=== PATIENT | female | born 1950 | race American Indian/Alaskan Native ===

== ENCOUNTER 2017-08-14 05:20 | Inpatient (IN) | payer MEDICARE ==
--- NOTE | 2017-08-14 06:22 | XRay Report ---
FINAL REPORT EXAM: XR CHEST 1V AP HISTORY: Dyspnea TECHNIQUE: AP portable view(s) of the chest obtained. PRIORS: None. FINDINGS: No mediastinal shift. The patient is rotated. Cardiac silhouette is not enlarged. No pneumothorax, effusion, or focal pulmonary opacity identified. No acute skeletal findings. IMPRESSION: No acute pulmonary finding identified.
[2017-08-14 06:23] LABS: Basophils % (Auto) 0.6 % (0.0-1.8); Eosinophils % (Auto) 2.1 % (0.0-4.3); Hematocrit 33.7 % (30.3-42.9); Hemoglobin 11.1 gm/dl (10.1-14.3); Mean Corpuscular HGB Conc 33 % (30-34); Mean Corpuscular Hemoglobin 29 pg (28-32); Mean Corpuscular Volume 89 fl (79-97); Platelet Count 125 K/mm3 (140-440); Red Cell Distribution Width 14.8 % (13.2-15.2); White Blood Count 3.5 K/mm3 (4.5-11.0)
[2017-08-14 06:45] LABS: Albumin 3.8 g/dL (3.9-5); Albumin/Globulin Ratio 1.1 %; Bilirubin,Total 0.4 mg/dL (0.1-1.2); Calcium 9.6 mg/dL (8.4-10.2); Chloride 95.4 mmol/L (98-107); Potassium 4.3 mmol/L (3.6-5.0); Total Protein 7.2 g/dL (6.3-8.2)
--- NOTE | 2017-08-14 07:18 | Emergency Department Report ---
ED General Adult HPI - General Chief complaint: Dyspnea/Respdistress Stated complaint: IGNACIO Time Seen by Provider: 08/14/17 06:29 Source: patient Mode of arrival: Stretcher Limitations: No Limitations - History of Present Illness Initial comments: Patient is a 67-year-old female past medical history of end-stage renal disease CVA who presents with chest pain. Patient states that chest pain occurred earlier on this morning she says the pain was made on 10 located in the middle of her chest radiated to her back was an achy type of pain nothing made it better or worse. The pain occurred while she was in her bathroom. Patient states that she's had similar chest pain like this before and she is also short of breath short of breath is worse with exertion and better with rest. She says the pain is constant and she called the ambulance. Severity scale (0 -10): 0 - Related Data Home Medications Medication Instructions Recorded Confirmed Last Taken ALPRAZolam 0.25 mg PO DAILY PRN 08/14/17 08/14/17 Unknown Cholecalciferol (Vitamin D3) 1,000 units PO DAILY 08/14/17 08/14/17 Unknown Coumadin 2.5 mg PO DAILY 08/14/17 08/14/17 Unknown Ergocalciferol (Vitamin D2) 1.25 mg PO 1XW MDD one by mouth 08/14/17 08/14/17 Unknown weekly HYDROcodone/APAP 5-325 1.5 mg PO BID PRN 08/14/17 08/14/17 Unknown Pantoprazole 40 mg PO DAILY 08/14/17 08/14/17 Unknown PriLOSEC 20 mg PO TID 08/14/17 08/14/17 Unknown Renvela 800 mg PO TID 08/14/17 08/14/17 Unknown Sensipar 60 mg PO DAILY 08/14/17 08/14/17 Unknown Temazepam 30 mg PO HS 08/14/17 08/14/17 Unknown Warfarin [Coumadin] 2.5 mg PO QWEEK 08/14/17 08/14/17 Unknown Warfarin [Coumadin] 5 mg PO QDAY 08/14/17 08/14/17 Unknown Xanax TAB 0.5 mg PO DAILY PRN 08/14/17 08/14/17 Unknown traZODone 50 mg PO HS 08/14/17 08/14/17 Unknown Previous Rx's Medication Instructions Recorded Last Taken Type Diltiazem [Cardizem] 60 mg PO TID 30 Days tablet 08/16/17 Unknown Rx Metoprolol [Lopressor TAB] 50 mg PO BID 30 Days tablet 08/16/17 Unknown Rx Allergies Allergy/AdvReac Type Severity Reaction Status Date / Time morphine Allergy Unknown Verified 08/14/17 06:42 ED Review of Systems ROS: Stated complaint: IGNACIO Other details as noted in HPI Constitutional: denies: chills, fever Eyes: denies: eye pain, eye discharge, vision change ENT: denies: ear pain, throat pain Respiratory: shortness of breath. denies: cough, wheezing Cardiovascular: chest pain. denies: palpitations Endocrine: no symptoms reported Gastrointestinal: denies: abdominal pain, nausea, diarrhea Genitourinary: denies: urgency, dysuria, discharge Musculoskeletal: denies: back pain, joint swelling, arthralgia Skin: denies: rash, lesions Neurological: denies: headache, weakness, paresthesias Psychiatric: denies: anxiety, depression Hematological/Lymphatic: denies: easy bleeding, easy bruising ED Past Medical Hx - Past Medical History Previous Medical History?: Yes Hx Hypertension: Yes Hx Diabetes: Yes Hx Renal Disease: Yes Additional medical history: End-stage renal disease.Mon/ Mon/ Mon Dialysis. Af - Surgical History Past Surgical History?: Yes Additional Surgical History: LUE fistula, C/Sx2 - Social History Smoking Status: Former Smoker Substance Use Type: None - Medications Home Medications: Home Medications Medication Instructions Recorded Confirmed Last Taken Type ALPRAZolam 0.25 mg PO DAILY PRN 08/14/17 08/14/17 Unknown History Cholecalciferol (Vitamin D3) 1,000 units PO DAILY 08/14/17 08/14/17 Unknown History Coumadin 2.5 mg PO DAILY 08/14/17 08/14/17 Unknown History Ergocalciferol (Vitamin D2) 1.25 mg PO 1XW MDD one by mouth 08/14/17 08/14/17 Unknown History weekly HYDROcodone/APAP 5-325 1.5 mg PO BID PRN 08/14/17 08/14/17 Unknown History Pantoprazole 40 mg PO DAILY 08/14/17 08/14/17 Unknown History PriLOSEC 20 mg PO TID 08/14/17 08/14/17 Unknown History Renvela 800 mg PO TID 08/14/17 08/14/17 Unknown History Sensipar 60 mg PO DAILY 08/14/17 08/14/17 Unknown History Temazepam 30 mg PO HS 08/14/17 08/14/17 Unknown History Warfarin [Coumadin] 2.5 mg PO QWEEK 08/14/17 08/14/17 Unknown History Warfarin [Coumadin] 5 mg PO QDAY 08/14/17 08/14/17 Unknown History Xanax TAB 0.5 mg PO DAILY PRN 08/14/17 08/14/17 Unknown History traZODone 50 mg PO HS 08/14/17 08/14/17 Unknown History Diltiazem [Cardizem] 60 mg PO TID 30 Days tablet 08/16/17 Unknown Rx Metoprolol [Lopressor TAB] 50 mg PO BID 30 Days tablet 08/16/17 Unknown Rx ED Physical Exam - General Limitations: No Limitations General appearance: alert, in no apparent distress - Head Head exam: Present: atraumatic, normocephalic - Eye Eye exam: Present: normal appearance - ENT ENT exam: Present: mucous membranes moist - Neck Neck exam: Present: normal inspection - Respiratory Respiratory exam: Present: normal lung sounds bilaterally. Absent: respiratory distress - Cardiovascular Cardiovascular Exam: Present: regular rate, normal rhythm. Absent: systolic murmur, diastolic murmur, rubs, gallop - GI/Abdominal GI/Abdominal exam: Present: soft, normal bowel sounds - Extremities Exam Extremities exam: Present: normal inspection - Back Exam Back exam: Present: normal inspection - Neurological Exam Neurological exam: Present: alert, oriented X3 - Psychiatric Psychiatric exam: Present: normal affect, normal mood - Skin Skin exam: Present: warm, dry, intact, normal color. Absent: rash ED Course Vital Signs 08/14/17 08/14/17 08/14/17 05:29 05:30 05:41 Temperature 99 F Pulse Rate 61 Respiratory 18 Rate Blood Pressure 132/59 Blood Pressure 132/59 [Right] O2 Sat by Pulse 100 100 100 Oximetry 08/14/17 08/14/17 08/14/17 05:45 06:00 06:12 Temperature Pulse Rate 58 L 59 L Respiratory 10 L 11 L 18 Rate Blood Pressure 132/59 133/75 Blood Pressure [Right] O2 Sat by Pulse 97 99 100 Oximetry 08/14/17 08/14/17 08/14/17 06:15 06:31 06:45 Temperature Pulse Rate 58 L 64 57 L Respiratory 14 11 L 14 Rate Blood Pressure 133/75 133/75 133/75 Blood Pressure [Right] O2 Sat by Pulse 100 98 98 Oximetry 08/14/17 08/14/17 08/14/17 07:00 07:15 07:30 Temperature Pulse Rate 58 L 59 L 63 Respiratory 16 13 11 L Rate Blood Pressure 135/79 143/90 155/92 Blood Pressure [Right] O2 Sat by Pulse 98 100 100 Oximetry 08/14/17 08/14/17 08/14/17 07:33 07:45 08:00 Temperature Pulse Rate 62 56 L 56 L Respiratory 12 13 Rate Blood Pressure 155/92 127/58 Blood Pressure [Right] O2 Sat by Pulse 98 96 Oximetry 08/14/17 08/14/17 08/14/17 08:15 08:30 08:45 Temperature Pulse Rate 59 L 58 L 63 Respiratory 12 14 13 Rate Blood Pressure 127/58 125/69 125/69 Blood Pressure [Right] O2 Sat by Pulse 100 97 100 Oximetry 08/14/17 08/14/17 08/14/17 09:01 09:15 09:31 Temperature Pulse Rate 59 L 66 92 H Respiratory 11 L 19 12 Rate Blood Pressure 125/69 125/69 125/69 Blood Pressure [Right] O2 Sat by Pulse Oximetry 08/14/17 08/14/17 09:45 10:00 Temperature Pulse Rate 72 60 Respiratory 10 L 19 Rate Blood Pressure 125/69 124/66 Blood Pressure [Right] O2 Sat by Pulse 99 Oximetry ED Medical Decision Making - Lab Data Result diagrams: 08/15/17 07:26 08/14/17 06:10 - EKG Data -: EKG Interpreted by Nv - EKG Data 08/14/17 10:34 EKG shows normal sinus rhythm no ST segment elevation or T-wave inversion normal access. - Radiology Data Radiology results: report reviewed, image reviewed Chest x-ray: Shows no acute cardio pulmonary disease - Medical Decision Making Chief medical diagnosis: Non-STEMI Differential medical diagnosis: Pneumonia, hyperkalemia, arrhythmia, bloodshot abnormality I will get an EKG chest x-ray CBC CMP troponin and IV pain medication Due to patient's cardiac risk factors and medical comorbidities patient will be admitted to the hospitalist service discussed found patient patient agrees with plan. Patient agrees with admission. Critical care attestation.: If time is entered above; I have spent that time in minutes in the direct care of this critically ill patient, excluding procedure time. ED Disposition Clinical Impression: Sciatica Qualifiers: Laterality: unspecified laterality Qualified Code(s): M54.30 - Sciatica, unspecified side Fluid overload Qualifiers: Hypervolemia type: unspecified Qualified Code(s): E87.70 - Fluid overload, unspecified Diabetes Qualifiers: Diabetes mellitus type: type 2 Diabetes mellitus complication status: with kidney complications Diabetes mellitus complication detail: with chronic kidney disease Diabetes mellitus buttermaker insulin use: with halfway use Chronic kidney disease stage: on chronic dialysis Qualified Code(s): E11.22 - Type 2 diabetes mellitus with diabetic chronic kidney disease; N18.6 - End stage renal disease; N18.6 - End stage renal disease; N18.6 - End stage renal disease; N18.6 - End stage renal disease; Z79.4 - manager terminal (current) use of insulin; Z79.4 - manager terminal (current) use of insulin; Z79.4 - manager terminal (current) use of insulin; Z79.4 - [facility] (current) use of insulin; Z99.2 - Dependence on renal dialysis; Z99.2 - Dependence on renal dialysis; Z99.2 - Dependence on renal dialysis; Z99.2 - Dependence on renal dialysis Disposition: DC-01 TO HOME OR SELFCARE Is pt being admited?: Yes Does the pt Need Aspirin: No Condition: Stable
[2017-08-14] MEDS ORDERED: DULCOLAX PR PRN (09:05)
[2017-08-14] MEDS ORDERED: AMBIEN PO PRN (09:05)
[2017-08-14] MEDS ORDERED: TYLENOL PO PRN (09:05)
[2017-08-14] MEDS ORDERED: NON-FORMULARY (Temazepam [Temazepam] 30 MG) PO PRN (09:27)
[2017-08-14] MEDS ORDERED: FLEXERIL PO PRN (09:27)
[2017-08-14] MEDS ORDERED: NITROSTAT SL PRN (09:33)
[2017-08-14] MEDS ORDERED: BABY ASPIRIN PO ONE (09:33)
[2017-08-14 09:37] LABS: INR 2.12 (0.87-1.13)
[2017-08-14 09:38] LABS: Partial Thromboplastin Time 39.2 Sec. (24.2-36.6)
[2017-08-14] MEDS ORDERED: ZOFRAN IV PRN (09:51)
--- NOTE | 2017-08-14 09:54 | History and Physical Report ---
<NEYDA EPSTEIN - Last Filed: 08/14/17 10:43> History of Present Illness Date of examination: 08/14/17 Date of admission: 08/14/2017 Chief complaint: heart palpitation and discomfort History of present illness: Patient is a 66 year old female with a history of ESRD, CVA, HTN, DM who presented to the Emergency Department complaints of worsening heart palpitations chest discomfort. She states that the pain began this morning while going to the bathroom, shortly thereafter, she felt like her heart is pounding to fast and got worried so called 911 and brought her to the Emergency Department. Patient described heart palpitations as something squeezing in her chest; non-radiating. There is no aggravating or reliving factors. The painful episodes did not increase in intensity or severity during this time. Patient denies any chest pain or discomfort at present time. She denies nausea, vomiting during these episodes of pain. She experienced shortness of breath and diaphoresis during these episodes of discomfort. Patient has negative stress test [address] [facility]. Past History Past Medical History: diabetes, ESRD, hypertension, stroke Past Surgical History: Other (Dialysis access) Social history: denies: smoking, alcohol abuse Family history: diabetes, hypertension Medications and Allergies Allergies Allergy/AdvReac Type Severity Reaction Status Date / Time morphine Allergy Unknown Verified 08/14/17 06:42 Home Medications Medication Instructions Recorded Confirmed Last Taken Type Cyclobenzaprine [Flexeril 10 MG 5 mg PO TID PRN #14 tablet 05/19/13 10/17/13 Rx TAB] 5mg oxyCODONE /ACETAMINOPHEN [Percocet 1 tab PO Q6HR PRN #14 tablet 05/19/1309/16/13 17:03 Rx 5/325 mg] ALPRAZolam [Xanax TAB] 0.5 mg PO Q8HR PRN 10/17/13 10/17/13 10/16/13 History Atenolol [Tenormin] 100 mg PO DAILY 10/17/13 10/17/13 10/16/13 History B Complex 11/Folic/C/Biot/Zinc 1 mg PO AC 10/17/13 10/17/13 10/16/13 History [Dialyvite with Zinc Tablet] Benazepril HCl [Lotensin] 40 mg PO DAILY 10/17/13 10/17/13 10/16/13 History Cinacalcet HCl [Sensipar] 60 mg PO DAILY 10/17/13 10/17/13 10/16/13 History Gabapentin [Neurontin] 100 mg PO Q8H 10/17/13 10/17/13 10/16/13 History NIFEdipine XL [Procardia Xl] 30 mg PO QDAY 10/17/13 10/17/13 10/16/13 History Sevelamer Carbonate [Renvela] 800 mg PO TIDWM 10/17/13 10/17/13 10/16/13 History Temazepam 30 mg PO HS PRN 10/17/13 10/17/13 10/16/13 History cloNIDine [Catapres] 0.2 mg PO QHS 10/17/13 10/17/13 10/16/13 History Warfarin [Coumadin] 2.5 mg PO QWEEK 08/14/17 08/14/17 Unknown History Warfarin [Coumadin] 5 mg PO QDAY 08/14/17 08/14/17 Unknown History Active Meds: Active Medications Acetaminophen (Tylenol) 650 mg PO Q4H PRN PRN Reason: Pain MILD(1-3)/Fever >100.5/VANN Aspirin (Baby Aspirin) 81 mg PO ONCE ONE Stop: 08/14/17 09:34 Bisacodyl (Dulcolax) 10 mg ID QDAY PRN PRN Reason: Constipation unrelieved by MOM Clonidine HCl (Catapres) 0.2 mg PO QHS [facility] Cyclobenzaprine HCl (Flexeril) 5 mg PO TID PRN PRN Reason: Pain Gabapentin (Neurontin) 100 mg PO Q8H [facility] Heparin Sodium (Porcine) (Heparin) 5,000 unit SUB-Q Q12HR [facility] Hydromorphone HCl (Dilaudid) 0.5 mg IV Q3H PRN PRN Reason: Pain, Moderate (4-6) Miscellaneous Medication (Atenolol [Tenormin]) 100 mg PO DAILY [facility] Miscellaneous Medication (B Complex 11/Folic/C/Biot/Zinc [Dialyvite With Zinc Tablet]) 1 mg PO AC [facility] Miscellaneous Medication (Benazepril Hcl [Lotensin]) 40 mg PO DAILY [facility] Miscellaneous Medication (Cinacalcet Hcl [Sensipar]) 60 mg PO DAILY [facility] Miscellaneous Medication (Temazepam [Temazepam]) 30 mg PO HS PRN PRN Reason: Insomnia Nifedipine (Procardia Xl) 30 mg PO QDAY [facility] Nitroglycerin (Nitrostat) 0.4 mg SL .Q5MIN PRN PRN Reason: Chest Pain Sevelamer Carbonate (Renvela) 800 mg PO TIDWM [facility] Warfarin Sodium (Coumadin Pharmacy To Dose) 1 each PO PKCONSULT [facility] PRN Reason: Protocol Zolpidem Tartrate (Ambien) 5 mg PO QHS PRN PRN Reason: Insomnia Review of Systems Constitutional: no weight loss, no weight gain, no fever, no chills Ears, nose, mouth and throat: no ear discharge, no tinnitis, no decreased hearing Breasts: no change in shape, no swelling Cardiovascular: chest pain, palpitations, shortness of breath, dyspnea on exertion, paroxysmal nocturnal dyspnea Respiratory: no cough Gastrointestinal: no abdominal pain, no nausea, no vomiting, no diarrhea, no constipation Genitourinary Female: no flank pain, no menorrhagia, no dysuria, no urinary frequency Rectal: no incontinence, no bleeding Musculoskeletal: no neck pain, no shooting arm pain, no arm numbness/tingling Integumentary: no sores, no wounds, no boils Neurological: no seizures, no syncope, no tremors Psychiatric: no change in appetite, no change in libido, no suicidal ideation Endocrine: no polyuria, no nocturia, no excessive sweating Hematologic/Lymphatic: no easy bruising, no easy bleeding Allergic/Immunologic: no urticaria, no allergic rhinitis, no wheezing Exam - Constitutional Vitals: Temp Pulse Resp BP Pulse Ox 99 F 59 L 11 L 125/69 100 08/14/17 05:41 08/14/17 09:01 08/14/17 09:01 08/14/17 09:01 08/14/17 08:45 General appearance: Present: no acute distress - EENT Eyes: Present: PERRL ENT: hearing intact - Neck Neck: Present: supple - Respiratory Respiratory effort: normal Respiratory: bilateral: CTA - Cardiovascular Rhythm: regular Heart Sounds: Present: S1 & S2 - Abdominal General gastrointestinal: Present: soft, non-tender - Rectal Rectal Exam: deferred - Integumentary Integumentary: Present: clear, warm, dry - Musculoskeletal Musculoskeletal: strength equal bilaterally - Psychiatric Psychiatric: appropriate mood/affect - Neurologic Neurologic: CNII-XII intact - Allied Health Allied health notes reviewed: nursing Results - Labs CBC & Chem 7: 08/14/17 06:10 08/14/17 06:10 Labs: Laboratory Last Values WBC 3.5 K/mm3 (4.5-11.0) L 08/14/17 06:10 RBC 3.80 M/mm3 (3.65-5.03) 08/14/17 06:10 Hgb 11.1 gm/dl (10.1-14.3) 08/14/17 06:10 Hct 33.7 % (30.3-42.9) 08/14/17 06:10 MCV 89 fl (79-97) 08/14/17 06:10 MCH 29 pg (28-32) 08/14/17 06:10 MCHC 33 % (30-34) 08/14/17 06:10 RDW 14.8 % (13.2-15.2) 08/14/17 06:10 Plt Count 125 K/mm3 (140-440) L 08/14/17 06:10 Lymph % (Auto) 37.5 % (13.4-35.0) H 08/14/17 06:10 [place] % (Auto) 12.4 % (0.0-7.3) H 08/14/17 06:10 Eos % (Auto) 2.1 % (0.0-4.3) 08/14/17 06:10 Baso % (Auto) 0.6 % (0.0-1.8) 08/14/17 06:10 Lymph # 1.3 K/mm3 (1.2-5.4) 08/14/17 06:10 [place] # 0.4 K/mm3 (0.0-0.8) 08/14/17 06:10 Eos # 0.1 K/mm3 (0.0-0.4) 08/14/17 06:10 Baso # 0.0 K/mm3 (0.0-0.1) 08/14/17 06:10 Seg Neutrophils % 47.4 % (40.0-70.0) 08/14/17 06:10 Seg Neutrophils # 1.7 K/mm3 (1.8-7.7) L 08/14/17 06:10 PT 24.8 Sec. (12.2-14.9) H 08/14/17 08:45 INR 2.12 (0.87-1.13) H 08/14/17 08:45 APTT 39.2 Sec. (24.2-36.6) H 08/14/17 08:45 Sodium 138 mmol/L (137-145) 08/14/17 06:10 Potassium 4.3 mmol/L (3.6-5.0) 08/14/17 06:10 Chloride 95.4 mmol/L (98-107) L 08/14/17 06:10 Carbon Dioxide 25 mmol/L (22-30) 08/14/17 06:10 Anion Gap 22 mmol/L 08/14/17 06:10 BUN 34 mg/dL (7-17) H 08/14/17 06:10 Creatinine 12.2 mg/dL (0.7-1.2) H 08/14/17 06:10 Estimated GFR 4 ml/min 08/14/17 06:10 BUN/Creatinine Ratio 3 % 08/14/17 06:10 Glucose 140 mg/dL (65-100) H 08/14/17 06:10 Calcium 9.6 mg/dL (8.4-10.2) 08/14/17 06:10 Total Bilirubin 0.40 mg/dL (0.1-1.2) 08/14/17 06:10 AST 17 units/L (5-40) 08/14/17 06:10 ALT 11 units/L (7-56) 08/14/17 06:10 Alkaline Phosphatase 153 units/L (35-129) H 08/14/17 06:10 Total Creatine Kinase 49 units/L (30-135) 08/14/17 06:10 CK-MB (CK-2) 1.0 ng/mL (0.0-4.0) 08/14/17 06:10 CK-MB (CK-2) Rel Index 2.0 (0-4) 08/14/17 06:10 Troponin T 0.048 ng/mL (0.00-0.029) H 08/14/17 07:13 Total Protein 7.2 g/dL (6.3-8.2) 08/14/17 06:10 Albumin 3.8 g/dL (3.9-5) L 08/14/17 06:10 Albumin/Globulin Ratio 1.1 % 08/14/17 06:10 Triglycerides 121 mg/dL (2-149) 08/14/17 07:13 Cholesterol 139 mg/dL (50-199) 08/14/17 07:13 LDL Cholesterol Direct 56 mg/dL (50-130) 08/14/17 07:13 HDL Cholesterol 59 mg/dL (40-59) 08/14/17 07:13 Cholesterol/HDL Ratio 2.35 % 08/14/17 07:13 - Imaging and Cardiology Chest x-ray: image reviewed (unremarkable ) Assessment and Plan Assessment and plan: Patient is a 66 year old female with a history of ESRD, CVA, HTN, DM who presented to the Emergency Department complaints of worsening heart palpitations chest discomfort. She states that the pain began this morning while going to the bathroom, shortly thereafter, she felt like her heart is pounding to fast. Chest Pain/discomfort We will admit to telemetry floor. EKG normal sinus rate [address] elevation or T-wave inversion. elevated cardiac enzyme due to ESRD. patient has elevated troponin on pervious labs. Start on aspirin Nitroglycerin when necessary Morphine ordered for pain Stress test ordered. Hypertension Resume home antihypertensive medication IV hydralazine for SBP>160 Closely monitor blood pressure End-stage renal disease on dialysis Patient will have urgent dialysis today Nephrology consulted Diabetes mellitus Accu-Chek before meals and at bedtime Sliding scale insulin/NovoLog ADA carbohydrate consistent diet Hypertensive urgency Continue home antihypertensive medications IV hydralazine for SBP>160 Closely monitor blood pressure Chronic anemia H&H stable for patient at this point; no blood transfusions needed Closely monitor H&H Hx of Atrial fibrillation Resume Coumadin DVT prophylaxis Heparin Advance Directives: Yes VTE prophylaxis?: Chemical Contraindication Mechanical VTE Prophylaxis: Treatment Not Indicated Plan of care discussed with patient/family: Yes <RUDY REBOLLEDO - Last Filed: 08/14/17 17:04> History of Present Illness Date of admission: 08/14/17 09:05 Medications and Allergies Active Meds: Active Medications Acetaminophen (Tylenol) 650 mg PO Q4H PRN PRN Reason: Pain MILD(1-3)/Fever >100.5/VANN Alprazolam (Xanax) 0.5 mg PO Q8H PRN PRN Reason: Anxiety Last Admin: 08/14/17 14:28 Dose: 0.5 mg Atenolol (Tenormin) 100 mg PO QDAY [facility] Bisacodyl (Dulcolax) 10 mg ID QDAY PRN PRN Reason: Constipation unrelieved by MOM Cinacalcet (Sensipar) 60 mg PO QDAY [facility] Clonidine HCl (Catapres) 0.2 mg PO QHS [facility] Cyclobenzaprine HCl (Flexeril) 5 mg PO TID PRN PRN Reason: MUSCLE RELAXING Dextrose (D50w (25gm) Syringe) 50 ml IV PRN PRN PRN Reason: Hypoglycemia Gabapentin (Neurontin) 100 mg PO Q8HR [facility] Hydromorphone HCl (Dilaudid) 0.5 mg IV Q3H PRN PRN Reason: Pain, Moderate (4-6) Last Admin: 08/14/17 13:30 Dose: 0.5 mg Insulin Aspart (Novolog) 0 units SUB-Q AC [facility] PRN Reason: Protocol Insulin Aspart (Novolog) 0 units SUB-Q QHS [facility] PRN Reason: Protocol Lisinopril (Zestril) 40 mg PO QDAY [facility] Multivit/Ca Carb/B Cmplx/FA/Prenat (Renal Caps) 1 cap PO QDAY [facility] Last Admin: 08/14/17 13:31 Dose: 1 cap Nifedipine (Procardia Xl) 30 mg PO QDAY [facility] Nitroglycerin (Nitrostat) 0.4 mg SL .Q5MIN PRN PRN Reason: Chest Pain Ondansetron HCl (Zofran) 4 mg IV Q4H PRN PRN Reason: Nausea And Vomiting Sevelamer Carbonate (Renvela) 800 mg PO TIDWM [facility] Last Admin: 08/14/17 13:31 Dose: 800 mg Temazepam (Restoril) 30 mg PO QHS PRN PRN Reason: Sleep Warfarin Sodium (Coumadin Pharmacy To Dose) 1 each PO PKCONSULT [facility] PRN Reason: Protocol Warfarin Sodium (Coumadin) 5 mg PO DAILY@1700 [facility] Exam - Constitutional Vitals: Temp Pulse Resp BP Pulse Ox 98.7 F 61 18 155/88 98 08/14/17 11:44 08/14/17 11:44 11/27/17 11:44 08/14/17 11:44 08/14/17 11:44 Results - Labs CBC & Chem 7: 08/14/17 06:10 08/14/17 06:10 Labs: Laboratory Last Values WBC 3.5 K/mm3 (4.5-11.0) L 08/14/17 06:10 RBC 3.80 M/mm3 (3.65-5.03) 08/14/17 06:10 Hgb 11.1 gm/dl (10.1-14.3) 08/14/17 06:10 Hct 33.7 % (30.3-42.9) 08/14/17 06:10 MCV 89 fl (79-97) 08/14/17 06:10 MCH 29 pg (28-32) 08/14/17 06:10 MCHC 33 % (30-34) 08/14/17 06:10 RDW 14.8 % (13.2-15.2) 08/14/17 06:10 Plt Count 125 K/mm3 (140-440) L 08/14/17 06:10 Lymph % (Auto) 37.5 % (13.4-35.0) H 08/14/17 06:10 [place] % (Auto) 12.4 % (0.0-7.3) H 08/14/17 06:10 Eos % (Auto) 2.1 % (0.0-4.3) 08/14/17 06:10 Baso % (Auto) 0.6 % (0.0-1.8) 08/14/17 06:10 Lymph # 1.3 K/mm3 (1.2-5.4) 08/14/17 06:10 [place] # 0.4 K/mm3 (0.0-0.8) 08/14/17 06:10 Eos # 0.1 K/mm3 (0.0-0.4) 08/14/17 06:10 Baso # 0.0 K/mm3 (0.0-0.1) 08/14/17 06:10 Seg Neutrophils % 47.4 % (40.0-70.0) 08/14/17 06:10 Seg Neutrophils # 1.7 K/mm3 (1.8-7.7) L 08/14/17 06:10 PT 24.8 Sec. (12.2-14.9) H 08/14/17 08:45 INR 2.12 (0.87-1.13) H 08/14/17 08:45 APTT 39.2 Sec. (24.2-36.6) H 08/14/17 08:45 Sodium 138 mmol/L (137-145) 08/14/17 06:10 Potassium 4.3 mmol/L (3.6-5.0) 08/14/17 06:10 Chloride 95.4 mmol/L (98-107) L 08/14/17 06:10 Carbon Dioxide 25 mmol/L (22-30) 08/14/17 06:10 Anion Gap 22 mmol/L 08/14/17 06:10 BUN 34 mg/dL (7-17) H 08/14/17 06:10 Creatinine 12.2 mg/dL (0.7-1.2) H 08/14/17 06:10 Estimated GFR 4 ml/min 08/14/17 06:10 BUN/Creatinine Ratio 3 % 08/14/17 06:10 Glucose 140 mg/dL (65-100) H 08/14/17 06:10 POC Glucose 161 (70-105) H 08/14/17 11:53 Calcium 9.6 mg/dL (8.4-10.2) 08/14/17 06:10 Total Bilirubin 0.40 mg/dL (0.1-1.2) 08/14/17 06:10 AST 17 units/L (5-40) 08/14/17 06:10 ALT 11 units/L (7-56) 08/14/17 06:10 Alkaline Phosphatase 153 units/L (35-129) H 08/14/17 06:10 Total Creatine Kinase 49 units/L (30-135) 08/14/17 06:10 CK-MB (CK-2) 1.0 ng/mL (0.0-4.0) 08/14/17 06:10 CK-MB (CK-2) Rel Index 2.0 (0-4) 08/14/17 06:10 Troponin T 0.054 ng/mL (0.00-0.029) H 08/14/17 09:48 Total Protein 7.2 g/dL (6.3-8.2) 08/14/17 06:10 Albumin 3.8 g/dL (3.9-5) L 08/14/17 06:10 Albumin/Globulin Ratio 1.1 % 08/14/17 06:10 Triglycerides 121 mg/dL (2-149) 08/14/17 07:13 Cholesterol 139 mg/dL (50-199) 08/14/17 07:13 LDL Cholesterol Direct 56 mg/dL (50-130) 08/14/17 07:13 HDL Cholesterol 59 mg/dL (40-59) 08/14/17 07:13 Cholesterol/HDL Ratio 2.35 % 08/14/17 07:13 Assessment and Plan Assessment and plan: I saw and evaluated the patient. I agree with the findings and the plan of care as documented in the Nurse Practitioner's~note, with the following corrections and additions. Since seen and evaluated, medical records and above documentation reviewed Agree with the current management Follow cardiology and nephrology evaluation Plan of care discussed with the patient
[2017-08-14] MEDS ORDERED: NON-FORMULARY (Atenolol [Tenormin] 100 MG) PO SCH (10:00)
[2017-08-14] MEDS ORDERED: NON-FORMULARY (Benazepril Hcl [Lotensin] 40 MG) PO SCH (10:00)
[2017-08-14] MEDS ORDERED: NON-FORMULARY (Cinacalcet Hcl [Sensipar] 60 MG) PO SCH (10:00)
[2017-08-14] MEDS ORDERED: HEPARIN SUB-Q SCH (10:00)
[2017-08-14] MEDS ORDERED: D50W (25GM) Syringe IV PRN (10:37)
[2017-08-14] MEDS ORDERED: RESTORIL PO PRN (10:48)
[2017-08-14] MEDS ORDERED: B COMPLEX PO SCH (11:30)
[2017-08-14] MEDS ORDERED: FOLIC PO SCH (11:30)
[2017-08-14] MEDS ORDERED: ZINC PO SCH (11:30)
[2017-08-14] MEDS ORDERED: [UNRECOGNIZED DRUG - OTHER] PO SCH (11:30)
[2017-08-14] MEDS ORDERED: BIOT PO SCH (11:30)
[2017-08-14] MEDS: DILAUDID IV PRN ×3 (13:30→23:08)
[2017-08-14] MEDS: RENVELA PO SCH ×2 (13:31→19:57)
[2017-08-14] MEDS: Renal Caps PO SCH (13:31)
[2017-08-14] MEDS: XANAX PO PRN (14:28)
--- NOTE | 2017-08-14 15:54 | Consultation ---
History of Present Illness Consult date: 08/14/17 Requesting physician: NEYDA EPSTEIN Consult reason: other (palpitations) History of present illness: The pt is a 66 YO female with a past medical history significant for ESRD on HD (followed by Dr. Panda), HTN, DM, paroxysmal atrial fibrillation, chronically anticoagulated with coumadin, CVA, DVT. She states she is regularly followed by a shipping agent, Dr. Aguirre, in [place]. She presented with c/o palpitations x 2 days [employer]. This AM, around 4AM, she developed an "anxiety spell" and a worsening of her palpitations and thus called 911. She denies any chest pain, SOB, n/v, diaphoresis, dizziness or syncope. She denies any aggravating or alleviating factors. Admission ECG showed NSR with HR 60bpm. Telemetry review since admission shows SB/SR with no evidence of cardiac arrhythmias. On evaluation, pt denies any current complaints. Pt underwent echo at [place] 03/2017 which showed EF 60-65%, mild LVH, mild MR, mild/mod TR. Lexiscan MPI stress test 06/2016 was negative for significant scar or ischemia, EF 73%. Past History Past Medical History: atrial fib, diabetes, dialysis, ESRD, hypertension, stroke Past Surgical History: Other (Dialysis access) Social history: denies: smoking, alcohol abuse Family history: diabetes, hypertension Medications and Allergies Allergies Allergy/AdvReac Type Severity Reaction Status Date / Time morphine Allergy Unknown Verified 08/14/17 06:42 Home Medications Medication Instructions Recorded Confirmed Last Taken Type Cyclobenzaprine [Flexeril 10 MG 5 mg PO TID PRN #14 tablet 05/19/13 10/17/13 Rx TAB] 5mg oxyCODONE /ACETAMINOPHEN [Percocet 1 tab PO Q6HR PRN #14 tablet 05/19/1309/16/13 17:03 Rx 5/325 mg] ALPRAZolam [Xanax TAB] 0.5 mg PO Q8HR PRN 10/17/13 10/17/13 10/16/13 History Atenolol [Tenormin] 100 mg PO DAILY 10/17/13 10/17/13 10/16/13 History B Complex 11/Folic/C/Biot/Zinc 1 mg PO AC 10/17/13 10/17/13 10/16/13 History [Dialyvite with Zinc Tablet] Benazepril HCl [Lotensin] 40 mg PO DAILY 10/17/13 10/17/13 10/16/13 History Cinacalcet HCl [Sensipar] 60 mg PO DAILY 10/17/13 10/17/13 10/16/13 History Gabapentin [Neurontin] 100 mg PO Q8H 10/17/13 10/17/13 10/16/13 History NIFEdipine XL [Procardia Xl] 30 mg PO QDAY 10/17/13 10/17/13 10/16/13 History Sevelamer Carbonate [Renvela] 800 mg PO TIDWM 10/17/13 10/17/13 10/16/13 History Temazepam 30 mg PO HS PRN 10/17/13 10/17/13 10/16/13 History cloNIDine [Catapres] 0.2 mg PO QHS 10/17/13 10/17/13 10/16/13 History Warfarin [Coumadin] 2.5 mg PO QWEEK 08/14/17 08/14/17 Unknown History Warfarin [Coumadin] 5 mg PO QDAY 08/14/17 08/14/17 Unknown History Active Meds: Active Medications Acetaminophen (Tylenol) 650 mg PO Q4H PRN PRN Reason: Pain MILD(1-3)/Fever >100.5/VANN Alprazolam (Xanax) 0.5 mg PO Q8H PRN PRN Reason: Anxiety Last Admin: 08/14/17 14:28 Dose: 0.5 mg Atenolol (Tenormin) 100 mg PO QDAY [facility] Bisacodyl (Dulcolax) 10 mg [place] QDAY PRN PRN Reason: Constipation unrelieved by MOM Cinacalcet (Sensipar) 60 mg PO QDAY [facility] Clonidine HCl (Catapres) 0.2 mg PO QHS [facility] Cyclobenzaprine HCl (Flexeril) 5 mg PO TID PRN PRN Reason: MUSCLE RELAXING Dextrose (D50w (25gm) Syringe) 50 ml IV PRN PRN PRN Reason: Hypoglycemia Gabapentin (Neurontin) 100 mg PO Q8HR [facility] Hydromorphone HCl (Dilaudid) 0.5 mg IV Q3H PRN PRN Reason: Pain, Moderate (4-6) Last Admin: 08/14/17 13:30 Dose: 0.5 mg Insulin Aspart (Novolog) 0 units SUB-Q AC [facility] PRN Reason: Protocol Insulin Aspart (Novolog) 0 units SUB-Q QHS [facility] PRN Reason: Protocol Lisinopril (Zestril) 40 mg PO QDAY [facility] Multivit/Ca Carb/B Cmplx/FA/Prenat (Renal Caps) 1 cap PO QDAY [facility] Last Admin: 08/14/17 13:31 Dose: 1 cap Nifedipine (Procardia Xl) 30 mg PO QDAY [facility] Nitroglycerin (Nitrostat) 0.4 mg SL .Q5MIN PRN PRN Reason: Chest Pain Ondansetron HCl (Zofran) 4 mg IV Q4H PRN PRN Reason: Nausea And Vomiting Sevelamer Carbonate (Renvela) 800 mg PO TIDWM [facility] Last Admin: 08/14/17 13:31 Dose: 800 mg Temazepam (Restoril) 30 mg PO QHS PRN PRN Reason: Sleep Warfarin Sodium (Coumadin Pharmacy To Dose) [facility] PR[facility] Reason: Protocol Warfarin Sodium (Coumadin) 5 mg PO DAILY@1700 [facility] Review of Systems Constitutional: no weight loss, no weight gain, no fever, no chills, no sweats Ears, nose, mouth and throat: no ear pain, no nose pain, no sinus pressure, no sinus pain Cardiovascular: palpitations, rapid/irregular heart beat, no chest pain, no orthopnea, no edema, no syncope, no lightheadedness, no shortness of breath, no dyspnea on exertion, no paroxysmal nocturnal dyspnea, no leg edema, no decreased exercise tolerance Respiratory: no cough, no shortness of breath, no dyspnea on exertion, no congestion, no wheezing, no pain on inspiration Gastrointestinal: no abdominal pain, no nausea, no vomiting, no diarrhea, no constipation, no change in bowel habits Genitourinary Female: no pelvic pain, no flank pain, no dysuria, no urinary frequency, no urgency Musculoskeletal: no neck stiffness, no neck pain, no shooting arm pain, no arm numbness/tingling, no low back pain, no shooting leg pain, no leg numbness/ tingling, no redness of joints Integumentary: no rash, no pruritis, no redness, no sores, no wounds Neurological: no head injury, no paralysis, no weakness, no parathesias, no numbness, no tingling, no seizures, no syncope Psychiatric: anxiety Endocrine: no cold intolerance, no heat intolerance Hematologic/Lymphatic: no easy bruising, no easy bleeding, no lymphadenopathy Allergic/Immunologic: no urticaria, no wheezing, no persistent infections Physical Examination Vital Signs Pulse Ox 100 08/14/17 05:29 General appearance: no acute distress HEENT: Positive: PERRL, Normocephaly, Mucus Membranes Moist Neck: Positive: neck supple, trachea midline Cardiac: Positive: Reg Rate and Rhythm, S1/S2 Lungs: Positive: clear to auscultation Neuro: Positive: Grossly Intact, Cranial Nerve 2-12 Intact Abdomen: Positive: Unremarkable, Soft, Active Bowel Sounds. Negative: Tender Skin: Positive: Clear. Negative: Rash, Wound Musculoskeletal: No Fluid Collection, No Pain, Normal Range of Motion Extremities: Absent: edema Results 08/14/17 06:10 08/14/17 06:10 Cardiac Enzymes 08/14/17 Range/Units 06:10 AST 17 (5-40) units/L CK-MB (CK-2) 1.0 (0.0-4.0) ng/mL Coagulation 08/14/17 Range/Units 08:45 PT 24.8 H (12.2-14.9) Sec. INR 2.12 H (0.87-1.13) APTT 39.2 H (24.2-36.6) Sec. Lipids 08/14/17 Range/Units 07:13 Triglycerides 121 (2-149) mg/dL Cholesterol 139 (50-199) mg/dL HDL Cholesterol 59 (40-59) mg/dL Cholesterol/HDL Ratio 2.35 % CBC 08/14/17 Range/Units 06:10 WBC 3.5 L (4.5-11.0) K/mm3 RBC 3.80 (3.65-5.03) M/mm3 Hgb 11.1 (10.1-14.3) gm/dl Hct 33.7 (30.3-42.9) % Plt Count 125 L (140-440) K/mm3 Lymph # 1.3 (1.2-5.4) K/mm3 [place] # 0.4 (0.0-0.8) K/mm3 Eos # 0.1 (0.0-0.4) K/mm3 Baso # 0.0 (0.0-0.1) K/mm3 Comprehensive Metabolic Panel 08/14/17 Range/Units 06:10 Sodium 138 (137-145) mmol/L Potassium 4.3 (3.6-5.0) mmol/L Chloride 95.4 L (98-107) mmol/L Carbon Dioxide 25 (22-30) mmol/L BUN 34 H (7-17) mg/dL Creatinine 12.2 H (0.7-1.2) mg/dL Glucose 140 H (65-100) mg/dL Calcium 9.6 (8.4-10.2) mg/dL AST 17 (5-40) units/L ALT 11 (7-56) units/L Alkaline Phosphatase 153 H (35-129) units/L Total Protein 7.2 (6.3-8.2) g/dL Albumin 3.8 L (3.9-5) g/dL - Imaging and Cardiology Echo: report reviewed (03/2017 which showed EF 60-65%, mild LVH, mild MR, mild/ mod TR.) EKG: report reviewed, image reviewed EKG interpretations - Telemetry EKG Rhythm: Sinus Rhythm - EKG Sinus rhythms and dysrhythmias: sinus rhythm Assessment and Plan Assessment: Paroxysmal atrial fibrillation - currently in SR; anticoagulated with coumadin ESRD on HD Minimially elevated troponin - flat; ECG with NAF; pt denies chest pain; currently nonspecific in setting of ESRD HTN DM H/o CVA H/o DVT Plan: Cont present cardiac regimen. Cont tele. No indication for repeat echo or ischemic evaluation at this time. Assessment and plan reviewed with pt at bedside. The patient has been seen in conjunction with Dr. UMA Hatch who agrees with the assessment and plan of care.
--- NOTE | 2017-08-14 17:11 | Consultation ---
History of Present Illness - Reason for Consult Consult date: 08/14/17 end stage renal disease Requesting physician: RUDY REBOLLEDO - History of Present Illness Patient is a 66 year old female with a history of ESRD, CVA, HTN, DM who presented to the Emergency Department complaints of worsening heart palpitations chest discomfort. She states that the pain began this morning while going to the bathroom, shortly thereafter, she felt like her heart is pounding to fast and got worried so called 911 and brought her to the Emergency Department. Patient described heart palpitations as something squeezing in her chest; non-radiating. There is no aggravating or reliving factors. The painful episodes did not increase in intensity or severity during this time. Patient denies any chest pain or discomfort at present time. She denies nausea, vomiting during these episodes of pain. She experienced shortness of breath and diaphoresis during these episodes of discomfort. Patient has negative stress test 2 month ago in [facility]. Past History Past Medical History: atrial fib, diabetes, dialysis, ESRD, hypertension, stroke Past Surgical History: Other (Dialysis access) Social history: denies: smoking, alcohol abuse Family history: diabetes, hypertension Medications and Allergies Allergies Allergy/AdvReac Type Severity Reaction Status Date / Time morphine Allergy Unknown Verified 08/14/17 06:42 Home Medications Medication Instructions Recorded Confirmed Last Taken Type Cyclobenzaprine [Flexeril 10 MG 5 mg PO TID PRN #14 tablet 05/19/13 10/17/13 Rx TAB] 5mg oxyCODONE /ACETAMINOPHEN [Percocet 1 tab PO Q6HR PRN #14 tablet 05/19/1309/16/13 17:03 Rx 5/325 mg] ALPRAZolam [Xanax TAB] 0.5 mg PO Q8HR PRN 10/17/13 10/17/13 10/16/13 History Atenolol [Tenormin] 100 mg PO DAILY 10/17/13 10/17/13 10/16/13 History B Complex 11/Folic/C/Biot/Zinc 1 mg PO AC 10/17/13 10/17/13 10/16/13 History [Dialyvite with Zinc Tablet] Benazepril HCl [Lotensin] 40 mg PO DAILY 10/17/13 10/17/13 10/16/13 History Cinacalcet HCl [Sensipar] 60 mg PO DAILY 10/17/13 10/17/13 10/16/13 History Gabapentin [Neurontin] 100 mg PO Q8H 10/17/13 10/17/13 10/16/13 History NIFEdipine XL [Procardia Xl] 30 mg PO QDAY 10/17/13 10/17/13 10/16/13 History Sevelamer Carbonate [Renvela] 800 mg PO TIDWM 10/17/13 10/17/13 10/16/13 History Temazepam 30 mg PO HS PRN 10/17/13 10/17/13 10/16/13 History cloNIDine [Catapres] 0.2 mg PO QHS 10/17/13 10/17/13 10/16/13 History Warfarin [Coumadin] 2.5 mg PO QWEEK 08/14/17 08/14/17 Unknown History Warfarin [Coumadin] 5 mg PO QDAY 08/14/17 08/14/17 Unknown History Active Meds: Active Medications Acetaminophen (Tylenol) 650 mg PO Q4H PRN PRN Reason: Pain MILD(1-3)/Fever >100.5/VANN Alprazolam (Xanax) 0.5 mg PO Q8H PRN PRN Reason: Anxiety Last Admin: 08/14/17 14:28 Dose: 0.5 mg Atenolol (Tenormin) 100 mg PO QDAY [facility] Bisacodyl (Dulcolax) 10 mg [place] QDAY PRN PRN Reason: Constipation unrelieved by MOM Cinacalcet (Sensipar) 60 mg PO QDAY [facility] Clonidine HCl (Catapres) 0.2 mg PO QHS [facility] Cyclobenzaprine HCl (Flexeril) 5 mg PO TID PRN PRN Reason: MUSCLE RELAXING Dextrose (D50w (25gm) Syringe) 50 ml IV PRN PRN PRN Reason: Hypoglycemia Gabapentin (Neurontin) 100 mg PO Q8HR [facility] Hydromorphone HCl (Dilaudid) 0.5 mg IV Q3H PRN PRN Reason: Pain, Moderate (4-6) Last Admin: 08/14/17 13:30 Dose: 0.5 mg Insulin Aspart (Novolog) 0 units SUB-Q AC [facility] PRN Reason: Protocol Insulin Aspart (Novolog) 0 units SUB-Q QHS [facility] PRN Reason: Protocol Lisinopril (Zestril) 40 mg PO QDAY [facility] Multivit/Ca Carb/B Cmplx/FA/Prenat (Renal Caps) 1 cap PO QDAY [facility] Last Admin: 08/14/17 13:31 Dose: 1 cap Nifedipine (Procardia Xl) 30 mg PO QDAY [facility] Nitroglycerin (Nitrostat) 0.4 mg SL .Q5MIN PRN PRN Reason: Chest Pain Ondansetron HCl (Zofran) 4 mg IV Q4H PRN PRN Reason: Nausea And Vomiting Sevelamer Carbonate (Renvela) 800 mg PO TIDWM [facility] Last Admin: 08/14/17 13:31 Dose: 800 mg Temazepam (Restoril) 30 mg PO QHS PRN PRN Reason: Sleep Warfarin Sodium (Coumadin Pharmacy To Dose) 1 each PO PKCONSULT [facility] PRN Reason: Protocol Warfarin Sodium (Coumadin) 5 mg PO DAILY@1700 [facility] Review of Systems All systems: negative (negative except as noted above) Exam - Vital Signs Vital signs: Vital Signs Pulse Ox 100 08/14/17 05:29 - General Appearance General appearance: well-developed, well-nourished, appears stated age EENT: PERRL, mucous membranes moist Neck: Present: neck supple, trachea midline. Absent: JVD/HJR, Masses Respiratory: Clear to Ascultation Heart: irregularly irregular Gastrointestinal: Present: normal, normoactive bowel sounds Integumentary: no rash, other (AV graft in the left forearm. Cannulated for dialysis) Results - Lab Results 08/14/17 06:10 08/14/17 06:10 Most recent lab results Calcium 9.6 mg/dL (8.4-10.2) 08/14/17 06:10 Assessment and Plan Impression * End-stage renal disease on maintenance hemodialysis * Chronic Atrial fibrillation * Hypertension * Diabetes * Anemia secondary to ESRD Recommendations * Continue hemodialysis on Wednesdays and Fridays schedules as outpatient * Adjust diet and meds for ESRD state * No IV, BP of venipuncture access arm * Binders with diet * Procrit with dialysis * Further plan for her A. fib as per cardiology services * Thank you very much for the consultation. Shall follow along with you
[2017-08-14] MEDS: TENORMIN PO SCH (19:54)
[2017-08-14] MEDS: ZESTRIL PO SCH (19:54)
[2017-08-14] MEDS: SENSIPAR PO SCH (19:54)
[2017-08-14] MEDS: PROCARDIA XL PO SCH (19:54)
[2017-08-14] MEDS: NOVOLOG SUB-Q SCH ×3 (19:55→22:07)
[2017-08-14] MEDS: NEURONTIN PO SCH ×2 (19:55→21:22)
[2017-08-14] MEDS: COUMADIN PO SCH (20:14)
[2017-08-14] MEDS ORDERED: CATAPRES PO SCH (22:00)
[2017-08-15] MEDS: DILAUDID IV PRN ×4 (05:12→19:48)
[2017-08-15] MEDS: NEURONTIN PO SCH ×3 (05:21→22:05)
[2017-08-15] MEDS: XANAX PO PRN ×2 (08:02→17:47)
[2017-08-15 08:09] LABS: Basophils % (Auto) 0.6 % (0.0-1.8); Eosinophils % (Auto) 1.7 % (0.0-4.3); Hematocrit 37.7 % (30.3-42.9); Mean Corpuscular HGB Conc 32 % (30-34); Mean Corpuscular Hemoglobin 28 pg (28-32); Mean Corpuscular Volume 88 fl (79-97); Platelet Count 161 K/mm3 (140-440); Red Blood Count 4.28 M/mm3 (3.65-5.03); Red Cell Distribution Width 14.7 % (13.2-15.2); White Blood Count 5.6 K/mm3 (4.5-11.0)
[2017-08-15 08:21] LABS: INR 1.74 (0.87-1.13); Partial Thromboplastin Time 29.3 Sec. (24.2-36.6)
[2017-08-15] MEDS: RENVELA PO SCH ×3 (08:28→17:28)
[2017-08-15] MEDS: NOVOLOG SUB-Q SCH ×4 (08:50→22:01)
--- NOTE | 2017-08-15 09:19 | Progress Note ---
Assessment and Plan Impression * End-stage renal disease on maintenance hemodialysis * Atrial fibrillation with rapid ventricular response * Hypertension * Diabetes * Anemia secondary to ESRD Recommendations * Continue hemodialysis on Wednesdays and Fridays schedules as outpatient * Adjust diet and meds for ESRD state * No IV, BP of venipuncture access arm * Binders with diet * Procrit with dialysis * Further plan for her A. fib as per cardiology services Subjective Date of service: 08/15/17 Interval history: Patient had some palpitations this morning. Denies any chest pain or shortness of breath. Had uneventful hemodialysis yesterday Objective - Vital Signs Vital signs: Vital Signs - 12hr 08/14/17 08/15/17 08/15/17 21:24 00:05 05:18 Temperature 98.3 F 98.4 F Pulse Rate 70 57 L 122 H Respiratory 18 18 Rate Blood Pressure 101/67 121/63 122/75 O2 Sat by Pulse 99 99 Oximetry 08/15/17 08:23 Temperature 98.7 F Pulse Rate 118 H Respiratory 16 Rate Blood Pressure 123/85 O2 Sat by Pulse 100 Oximetry - General Appearance General appearance: well-developed, well-nourished, appears stated age EENT: PERRL, mucous membranes moist Neck: no JVD, no thyromegaly, no carotid bruit, supple Respiratory: Present: Clear to Ascultation Cardiology: irregularly irregular, tachycardia Gastrointestinal: normal, normoactive bowel sounds Integumentary: no rash, other (AV graft in the left forearm. Good bruit and thrill) - Lab 08/15/17 07:26 08/14/17 06:10 Most recent lab results Calcium 9.6 mg/dL (8.4-10.2) 08/14/17 06:10
[2017-08-15] MEDS: SENSIPAR PO SCH (10:40)
[2017-08-15] MEDS: TENORMIN PO SCH ×2 (10:44→10:52)
[2017-08-15] MEDS: PROCARDIA XL PO SCH (10:48)
[2017-08-15] MEDS: Renal Caps PO SCH (10:51)
[2017-08-15] MEDS: ZESTRIL PO SCH (10:53)
[2017-08-15] MEDS ORDERED: LOPRESSOR PO SCH ×2 (11:38→14:00)
--- NOTE | 2017-08-15 11:41 | Progress Note ---
Assessment and Plan Assessment: Paroxysmal atrial fibrillation with RVR - anticoagulated with coumadin ESRD on HD Minimially elevated troponin - flat; ECG with NAF; pt denies chest pain; currently nonspecific in setting of ESRD HTN DM H/o CVA H/o DVT Plan: D/c atenolol, clonidine & nifedipine and initiate lopressor & cardizem for more adequate HR control. Cont tele. No indication for repeat echo or ischemic evaluation at this time. Assessment and plan reviewed with pt at bedside. The patient has been seen in conjunction with Dr. UMA Hatch who agrees with the assessment and plan of care. Subjective Date of service: 08/15/17 Principal diagnosis: paroxysmal AFib with RVR Interval history: Pt resting comfortably in bed. Tele reviewed - had bout of AFib with RVR this AM with HR as high as 180s, HR currently 130s with BPs stable. Pt c/o palpitations. Objective Last Vital Signs Temp 98.1 F 08/15/17 11:31 Pulse 63 08/15/17 11:31 Resp 16 08/15/17 11:31 BP 95/69 08/15/17 11:31 Pulse Ox 99 08/15/17 11:31 - Physical Examination HEENT: Positive: PERRL, Normocephaly, Mucus Membranes Moist Neck: Positive: neck supple, trachea midline. Negative: JVD/HJR, Masses Cardiac: Positive: irregularly irregular, S1/S2, Tachycardia Lungs: Positive: clear to auscultation Neuro: Positive: Grossly Intact, Cranial Nerve 2-12 Intact Abdomen: Positive: Unremarkable, Soft, Active Bowel Sounds. Negative: Tender Skin: Positive: Clear. Negative: Rash, Wound Musculoskeletal: No Fluid Collection, No Pain, Normal Range of Motion Extremities: Absent: edema - Labs and Meds Coagulation 08/15/17 Range/Units 07:26 PT 21.2 H (12.2-14.9) Sec. INR 1.74 H (0.87-1.13) APTT 29.3 (24.2-36.6) Sec. CBC 08/15/17 Range/Units 07:26 WBC 5.6 (4.5-11.0) K/mm3 RBC 4.28 (3.65-5.03) M/mm3 Hgb 12.0 (10.1-14.3) gm/dl Hct 37.7 (30.3-42.9) % Plt Count 161 (140-440) K/mm3 Lymph # 2.3 (1.2-5.4) K/mm3 [place] # 0.8 (0.0-0.8) K/mm3 Eos # 0.1 (0.0-0.4) K/mm3 Baso # 0.0 (0.0-0.1) K/mm3 - Imaging and Cardiology EKG: report reviewed, image reviewed Echo: report reviewed (03/2017 which showed EF 60-65%, mild LVH, mild MR, mild/ mod TR.) - EKG Sinus rhythms and dysrhythmias: sinus rhythm
[2017-08-15] MEDS: CARDIZEM PO SCH ×3 (12:00→19:49)
--- NOTE | 2017-08-15 12:20 | Progress Note ---
<NAN LIRIANO - Last Filed: 08/15/17 12:06> Assessment and Plan Assessment and plan: Patient is a 66 year old female with a history of ESRD, CVA, HTN, DM who presented to the Emergency Department complaints of worsening heart palpitations chest discomfort. She states that the pain began one day ago in the morning while going to the bathroom, shortly thereafter, she felt like her heart is pounding to fast. Chest Pain/discomfort Cardiology following Start on aspirin Nitroglycerin when necessary Morphine ordered for pain elevated cardiac enzyme due to ESRD. patient has elevated troponin on pervious labs. Atrial fibrillation Cardiology Following - D/c atenolol, clonidine & nifedipine and initiate lopressor & cardizem for more adequate HR control. Continue Coumadin Hypertension Continue home antihypertensive medication IV hydralazine for SBP>160 Closely monitor blood pressure End-stage renal disease on dialysis Nephrology following Per nephrology - Continue hemodialysis on Wednesdays and Fridays schedules as outpatient * Adjust diet and meds for ESRD state * No IV, BP of venipuncture access arm * Binders with diet * Procrit with dialysis Diabetes mellitus Accu-Chek before meals and at bedtime Sliding scale insulin/NovoLog ADA carbohydrate consistent diet Chronic anemia H&H stable for patient at this point; no blood transfusions needed Closely monitor H&H Pricrit with Dialysis as per Nephrology DVT prophylaxis Heparin History Interval history: Patient is alert and sitting comfortably in bed. Her only complaint was palpitations this morning. She denies chest pain SOB. Hospitalist Physical - Constitutional Vitals: Temp Pulse Resp BP Pulse Ox 98.1 F 63 16 95/69 99 08/15/17 11:31 08/15/17 11:31 08/15/17 11:31 08/15/17 11:31 08/15/17 11:31 General appearance: Present: no acute distress - Neck Neck: Present: supple, normal ROM - Respiratory Respiratory effort: normal Respiratory: bilateral: CTA - Cardiovascular Rhythm: irregularly irregular Heart Sounds: Present: S1 & S2 (tachycardia) - Extremities Extremities: no ischemia, No edema Peripheral Pulses: within normal limits - Abdominal General gastrointestinal: soft, non-tender, non-distended, normal bowel sounds - Integumentary Integumentary: Present: clear, warm, dry - Psychiatric Psychiatric: appropriate mood/affect, intact judgment & insight, cooperative - Neurologic Neurologic: CNII-XII intact, moves all extremities - Allied Health Allied health notes reviewed: nursing Results - Labs CBC & Chem 7: 08/15/17 07:26 08/14/17 06:10 Labs: Laboratory Last Values WBC 5.6 K/mm3 (4.5-11.0) 08/15/17 07:26 RBC 4.28 M/mm3 (3.65-5.03) 08/15/17 07:26 Hgb 12.0 gm/dl (10.1-14.3) 08/15/17 07:26 Hct 37.7 % (30.3-42.9) 08/15/17 07:26 MCV 88 fl (79-97) 08/15/17 07:26 MCH 28 pg (28-32) 08/15/17 07:26 MCHC 32 % (30-34) 08/15/17 07:26 RDW 14.7 % (13.2-15.2) 08/15/17 07:26 Plt Count 161 K/mm3 (140-440) 08/15/17 07:26 Lymph % (Auto) 41.7 % (13.4-35.0) H 08/15/17 07:26 Surry % (Auto) 14.9 % (0.0-7.3) H 08/15/17 07:26 Eos % (Auto) 1.7 % (0.0-4.3) 08/15/17 07:26 Baso % (Auto) 0.6 % (0.0-1.8) 08/15/17 07:26 Lymph # 2.3 K/mm3 (1.2-5.4) 08/15/17 07:26 [place] # 0.8 K/mm3 (0.0-0.8) 08/15/17 07:26 Eos # 0.1 K/mm3 (0.0-0.4) 08/15/17 07:26 Baso # 0.0 K/mm3 (0.0-0.1) 08/15/17 07:26 Seg Neutrophils % 41.1 % (40.0-70.0) 08/15/17 07:26 Seg Neutrophils # 2.3 K/mm3 (1.8-7.7) 08/15/17 07:26 PT 21.2 Sec. (12.2-14.9) H 08/15/17 07:26 INR 1.74 (0.87-1.13) H 08/15/17 07:26 APTT 29.3 Sec. (24.2-36.6) 08/15/17 07:26 Sodium 138 mmol/L (137-145) 08/14/17 06:10 Potassium 4.3 mmol/L (3.6-5.0) 08/14/17 06:10 Chloride 95.4 mmol/L (98-107) L 08/14/17 06:10 Carbon Dioxide 25 mmol/L (22-30) 08/14/17 06:10 Anion Gap 22 mmol/L 08/14/17 06:10 BUN 34 mg/dL (7-17) H 08/14/17 06:10 Creatinine 12.2 mg/dL (0.7-1.2) H 08/14/17 06:10 Estimated GFR 4 ml/min 08/14/17 06:10 BUN/Creatinine Ratio 3 % 08/14/17 06:10 Glucose 140 mg/dL (65-100) H 08/14/17 06:10 POC Glucose 109 (70-105) H 08/15/17 06:10 Calcium 9.6 mg/dL (8.4-10.2) 08/14/17 06:10 Total Bilirubin 0.40 mg/dL (0.1-1.2) 08/14/17 06:10 AST 17 units/L (5-40) 08/14/17 06:10 ALT 11 units/L (7-56) 08/14/17 06:10 Alkaline Phosphatase 153 units/L (35-129) H 08/14/17 06:10 Total Creatine Kinase 49 units/L (30-135) 08/14/17 06:10 CK-MB (CK-2) 1.0 ng/mL (0.0-4.0) 08/14/17 06:10 CK-MB (CK-2) Rel Index 2.0 (0-4) 08/14/17 06:10 Troponin T 0.054 ng/mL (0.00-0.029) H 08/14/17 09:48 Total Protein 7.2 g/dL (6.3-8.2) 08/14/17 06:10 Albumin 3.8 g/dL (3.9-5) L 08/14/17 06:10 Albumin/Globulin Ratio 1.1 % 08/14/17 06:10 Triglycerides 121 mg/dL (2-149) 08/14/17 07:13 Cholesterol 139 mg/dL (50-199) 08/14/17 07:13 LDL Cholesterol Direct 56 mg/dL (50-130) 08/14/17 07:13 HDL Cholesterol 59 mg/dL (40-59) 08/14/17 07:13 Cholesterol/HDL Ratio 2.35 % 08/14/17 07:13 <RUDY REBOLLEDO - Last Filed: 08/15/17 17:34> Assessment and Plan Assessment and plan: Patient seen and evaluated, medical records reviewed Agree with the Above documentation and treatment plan Follow cardiology evaluation and recommendations Possible discharge in 1-2 days if stable Hospitalist Physical - Constitutional Vitals: Temp Pulse Resp BP Pulse Ox 98.6 F 72 18 95/60 100 08/15/17 14:21 08/15/17 14:21 08/15/17 14:21 08/15/17 14:21 08/15/17 14:21 Results - Labs CBC & Chem 7: 08/15/17 07:26 08/14/17 06:10 Labs: Laboratory Last Values WBC 5.6 K/mm3 (4.5-11.0) 08/15/17 07:26 RBC 4.28 M/mm3 (3.65-5.03) 08/15/17 07:26 Hgb 12.0 gm/dl (10.1-14.3) 08/15/17 07:26 Hct 37.7 % (30.3-42.9) 08/15/17 07:26 MCV 88 fl (79-97) 08/15/17 07:26 MCH 28 pg (28-32) 08/15/17 07:26 MCHC 32 % (30-34) 08/15/17 07:26 RDW 14.7 % (13.2-15.2) 08/15/17 07:26 Plt Count 161 K/mm3 (140-440) 08/15/17 07:26 Lymph % (Auto) 41.7 % (13.4-35.0) H 08/15/17 07:26 Surry % (Auto) 14.9 % (0.0-7.3) H 08/15/17 07:26 Eos % (Auto) 1.7 % (0.0-4.3) 08/15/17 07:26 Baso % (Auto) 0.6 % (0.0-1.8) 08/15/17 07:26 Lymph # 2.3 K/mm3 (1.2-5.4) 08/15/17 07:26 [place] # 0.8 K/mm3 (0.0-0.8) 08/15/17 07:26 Eos # 0.1 K/mm3 (0.0-0.4) 08/15/17 07:26 Baso # 0.0 K/mm3 (0.0-0.1) 08/15/17 07:26 Seg Neutrophils % 41.1 % (40.0-70.0) 08/15/17 07:26 Seg Neutrophils # 2.3 K/mm3 (1.8-7.7) 08/15/17 07:26 PT 21.2 Sec. (12.2-14.9) H 08/15/17 07:26 INR 1.74 (0.87-1.13) H 08/15/17 07:26 APTT 29.3 Sec. (24.2-36.6) 08/15/17 07:26 Sodium 138 mmol/L (137-145) 08/14/17 06:10 Potassium 4.3 mmol/L (3.6-5.0) 08/14/17 06:10 Chloride 95.4 mmol/L (98-107) L 08/14/17 06:10 Carbon Dioxide 25 mmol/L (22-30) 08/14/17 06:10 Anion Gap 22 mmol/L 08/14/17 06:10 BUN 34 mg/dL (7-17) H 08/14/17 06:10 Creatinine 12.2 mg/dL (0.7-1.2) H 08/14/17 06:10 Estimated GFR 4 ml/min 08/14/17 06:10 BUN/Creatinine Ratio 3 % 08/14/17 06:10 Glucose 140 mg/dL (65-100) H 08/14/17 06:10 POC Glucose 173 (70-105) H 08/15/17 11:40 Calcium 9.6 mg/dL (8.4-10.2) 08/14/17 06:10 Total Bilirubin 0.40 mg/dL (0.1-1.2) 08/14/17 06:10 AST 17 units/L (5-40) 08/14/17 06:10 ALT 11 units/L (7-56) 08/14/17 06:10 Alkaline Phosphatase 153 units/L (35-129) H 08/14/17 06:10 Total Creatine Kinase 49 units/L (30-135) 08/14/17 06:10 CK-MB (CK-2) 1.0 ng/mL (0.0-4.0) 08/14/17 06:10 CK-MB (CK-2) Rel Index 2.0 (0-4) 08/14/17 06:10 Troponin T 0.054 ng/mL (0.00-0.029) H 08/14/17 09:48 Total Protein 7.2 g/dL (6.3-8.2) 08/14/17 06:10 Albumin 3.8 g/dL (3.9-5) L 08/14/17 06:10 Albumin/Globulin Ratio 1.1 % 08/14/17 06:10 Triglycerides 121 mg/dL (2-149) 08/14/17 07:13 Cholesterol 139 mg/dL (50-199) 08/14/17 07:13 LDL Cholesterol Direct 56 mg/dL (50-130) 08/14/17 07:13 HDL Cholesterol 59 mg/dL (40-59) 08/14/17 07:13 Cholesterol/HDL Ratio 2.35 % 08/14/17 07:13
[2017-08-15] MEDS: LOPRESSOR PO SCH ×3 (12:26→21:34)
[2017-08-15] MEDS: COUMADIN PO SCH (17:28)
[2017-08-16] MEDS: NEURONTIN PO SCH ×3 (06:09→21:42)
[2017-08-16] MEDS: NOVOLOG SUB-Q SCH ×4 (07:42→22:54)
[2017-08-16] MEDS: DILAUDID IV PRN ×3 (07:51→19:35)
[2017-08-16] MEDS: RENVELA PO SCH ×3 (08:45→19:41)
[2017-08-16] MEDS: XANAX PO PRN (10:07)
[2017-08-16 10:15] LABS: INR 1.81 (0.87-1.13)
--- NOTE | 2017-08-16 11:12 | Progress Note ---
Assessment and Plan Assessment: Paroxysmal atrial fibrillation with RVR --> SR; anticoagulated with coumadin ESRD on HD Minimally elevated troponin - flat; ECG with NAF; pt denies chest pain; currently nonspecific in setting of ESRD HTN DM H/o CVA H/o DVT Plan: Currently stable cardiac status. Cont present cardiac regimen. No indication for repeat echo or ischemic evaluation at this time. Pt may discharge home from cardiology standpoint this afternoon if HR remains controlled. Recommend pt to follow up with her primary traffic warehouse supervisor, Dr. Aguirre in [place], within 1-2 weeks of hospital discharge. Assessment and plan reviewed with pt at bedside. The patient has been seen in conjunction with Dr. UMA Hatch who agrees with the assessment and plan of care. Subjective Date of service: 08/16/17 Principal diagnosis: paroxysmal AFib with RVR Interval history: Pt resting comfortably in bed. Tele reviewed - pt currently in SR and remained in SR overnight. Objective Last Vital Signs Temp 98.3 F 08/16/17 07:23 Pulse 60 08/16/17 07:23 Resp 15 08/16/17 07:23 BP 113/75 08/16/17 07:23 Pulse Ox 100 08/16/17 07:23 - Physical Examination HEENT: Positive: PERRL, Normocephaly, Mucus Membranes Moist Neck: Positive: neck supple, trachea midline. Negative: JVD/HJR, Masses Cardiac: Positive: Reg Rate and Rhythm, S1/S2 Lungs: Positive: clear to auscultation Neuro: Positive: Grossly Intact, Cranial Nerve 2-12 Intact Abdomen: Positive: Unremarkable, Soft, Active Bowel Sounds. Negative: Tender Skin: Positive: Clear. Negative: Rash, Wound Musculoskeletal: No Fluid Collection, No Pain, Normal Range of Motion Extremities: Absent: edema - Labs and Meds Coagulation 08/16/17 Range/Units 09:05 PT 21.9 H (12.2-14.9) Sec. INR 1.81 H (0.87-1.13) - Imaging and Cardiology EKG: report reviewed, image reviewed Echo: report reviewed (03/2017 which showed EF 60-65%, mild LVH, mild MR, mild/ mod TR.) - EKG Sinus rhythms and dysrhythmias: sinus rhythm
[2017-08-16] MEDS ORDERED: NACL 0.9% 100 ML IV PRN (11:45)
--- NOTE | 2017-08-16 11:45 | Progress Note ---
Assessment and Plan Impression * End-stage renal disease on maintenance hemodialysis * Atrial fibrillation with rapid ventricular response * Hypertension * Diabetes * Anemia secondary to ESRD Recommendations * Continue hemodialysis on Wednesdays and Fridays schedules as outpatient * Adjust diet and meds for ESRD state * No IV, BP of venipuncture access arm * Binders with diet * Procrit with dialysis * Further plan for her A. fib as per cardiology services Subjective Date of service: 08/16/17 Principal diagnosis: paroxysmal AFib with RVR Interval history: Patient feels better this morning. Denies any chest pain or palpitation. Objective - Vital Signs Vital signs: Vital Signs - 12hr 08/16/17 08/16/17 04:53 07:23 Temperature 98.1 F 98.3 F Pulse Rate 58 L 60 Respiratory 18 15 Rate Blood Pressure 95/54 Blood Pressure 113/75 [Right] O2 Sat by Pulse 97 100 Oximetry - General Appearance General appearance: well-developed, well-nourished, appears stated age EENT: PERRL, mucous membranes moist Neck: no JVD, no thyromegaly, no carotid bruit, supple Respiratory: Present: Clear to Ascultation Cardiology: irregularly irregular Gastrointestinal: normal, normoactive bowel sounds Integumentary: no rash, other (AV graft in her left forearm. Good bruit and thrill) - Lab 08/15/17 07:26 08/14/17 06:10 Most recent lab results Calcium 9.6 mg/dL (8.4-10.2) 08/14/17 06:10
[2017-08-16] MEDS: CARDIZEM PO SCH ×3 (13:14→19:44)
[2017-08-16] MEDS: LOPRESSOR PO SCH ×2 (13:15→21:45)
--- NOTE | 2017-08-16 15:19 | Discharge Summary ---
<NAN LIRIANO - Last Filed: 08/16/17 16:30> Providers - Providers Date of Admission: 08/14/17 09:05 Date of discharge: 08/16/17 Attending physician: RUDY REBOLLEDO 08/14/17 09:05 Consult to Physician [CONS] Routine Consulting Provider: WOLFGANG ALFONSO Reason For Exam: End Stage Renal Failure Place consult to:: dr. alfonso Notified:: office Phone number called:: Was contact made?: Yes If yes, spoke with:: yogesh Time called:: 11:01 08/14/17 09:32 Consult to Physician [CONS] Routine Consulting Provider: JUANITA LAWLER Reason For Exam: Heart Pal Place consult to:: yes/ dr. lawler Notified:: office Phone number called:: yes/ Was contact made?: Yes If yes, spoke with:: adela Time called:: 13:01 Primary care physician: COMPANY [employer]ER Hospitalization Condition: Stable Hospital course: Patient is a 66 year old female with a history of ESRD, CVA, HTN, DM, Afib who presented to the Emergency Department complaints of worsening heart palpitations chest discomfort two days ago. She stated that the pain began one day prior in the morning while going to the bathroom, shortly thereafter, she felt like her heart was pounding too fast. Chest X-ray showed no acute findings. Patient was hemodialyzed and treated by plastic sheets supervisor for Afib. Patient resumed home medications with changes made by cardiology. Disposition: TO HOME OR SELFCARE Core Measure Documentation - Palliative Care Palliative Care/ Comfort Measures: Not Applicable - Core Measures Any of the following diagnoses?: none Exam - Constitutional Vitals: Temp Pulse Resp BP Pulse Ox 98.6 F 61 15 113/77 100 08/16/17 12:21 08/16/17 12:21 08/16/17 12:21 08/16/17 12:21 08/16/17 12:21 General appearance: Present: no acute distress, well-nourished - EENT Eyes: Present: PERRL ENT: hearing intact, clear oral mucosa - Neck Neck: Present: supple, normal ROM - Respiratory Respiratory effort: normal Respiratory: bilateral: CTA - Cardiovascular Heart Sounds: Present: S1 & S2. Absent: rub, click - Extremities Extremities: pulses symmetrical, No edema Peripheral Pulses: within normal limits - Abdominal General gastrointestinal: Present: soft, non-tender, non-distended, normal bowel sounds Female genitourinary: Present: normal - Integumentary Integumentary: Present: clear, warm, dry - Musculoskeletal Musculoskeletal: gait normal, strength equal bilaterally - Psychiatric Psychiatric: appropriate mood/affect, intact judgment & insight - Neurologic Neurologic: CNII-XII intact, moves all extremities - Allied Health Allied health notes reviewed: nursing Plan Activity: fall precautions Weight Bearing Status: Weight Bear as Tolerated Diet: low fat, low cholesterol, low salt, diabetic Follow up with: PRIMARY CARE, [Primary Care Provider] - 3-5 Days NA TANNER MD [Staff Physician] - 7 Days Forms: Warfarin Discharge Instruction Prescriptions: Diltiazem [Cardizem] 60 mg PO TID 30 Days tablet Metoprolol [Lopressor TAB] 50 mg PO BID 30 Days tablet <RUDY REBOLLEDO - Last Filed: 08/17/17 20:01> Providers - Providers Date of Admission: 08/14/17 09:05 Attending physician: RUDY REBOLLEDO 08/14/17 09:05 Consult to Physician [CONS] Routine Consulting Provider: WOLFGANG ALFONSO Reason For Exam: End Stage Renal Failure Place consult to:: dr. alfonso Notified:: office Phone number called:: Was contact made?: Yes If yes, spoke with:: yogesh Time called:: 11:01 08/14/17 09:32 Consult to Physician [CONS] Routine Consulting Provider: JUANITA LAWLER Reason For Exam: Heart Pal Place consult to:: yes/ dr. lawler Notified:: office Phone number called:: yes/ Was contact made?: Yes If yes, spoke with:: adela Time called:: 13:01 Primary care physician: COMPANY [employer]ER Hospitalization Reason for admission: chest pain and palpitations Pertinent studies: Chest X-ray ; no acute abnormality Hospital course: Patient was admitted with chest pain and palpitations, noted to be in A. fib with rapid ventricular rate Evaluated by plastic sheets supervisor, medications were optimized, patient was also seen by shredding machine tender, received hemodialysis per schedule Patient's symptoms significantly improved On the day of discharge patient is comfortable, no new complaints Vital signs reviewed stable [id number] evaluation and physical examination done by me prior to discharge is unremarkable Clear by cardiology and nephrology for discharge and follow-up with her private nephrology and hemodialysis as well as private plastic sheets supervisor For further evaluation and management At the time of discharge patient is clinically stable Discharge diagnosis; Paroxysmal atrial fibrillation with rapid ventricular rate; resolved Chronic anticoagulation with Coumadin End-stage renal disease on hemodialysis Nonspecific elevation of troponins Hypertension Diabetes mellitus Time spent for discharge: 32 min Core Measure Documentation - Palliative Care Palliative Care/ Comfort Measures: Not Applicable - Core Measures Any of the following diagnoses?: none Exam - Constitutional Vitals: Temp Pulse Resp BP Pulse Ox 98.9 F 65 18 140/84 100 08/16/17 15:20 08/16/17 18:00 08/16/17 15:20 08/16/17 18:00 08/16/17 12:21 Plan Additional Instructions: Renal/HD per schedule. f/u private plastic sheets supervisor out of town in 1 week
--- NOTE | 2017-08-16 19:32 | Discharge Summary ---
Providers - Providers Date of Admission: 08/14/17 09:05 Attending physician: RUDY REBOLLEDO 08/14/17 09:05 Consult to Physician [CONS] Routine Consulting Provider: WOLFGANG ALFONSO Reason For Exam: End Stage Renal Failure Place consult to:: dr. alfonso Notified:: office Phone number called:: Was contact made?: Yes If yes, spoke with:: yogesh Time called:: 11:01 08/14/17 09:32 Consult to Physician [CONS] Routine Consulting Provider: JUANITA LAWLER Reason For Exam: Heart Pal Place consult to:: yes/ dr. lawler Notified:: office Phone number called:: yes/ Was contact made?: Yes If yes, spoke with:: adela Time called:: 13:01 Primary care physician: [employer] WORKER Hospitalization Condition: Stable Disposition: DC-01 TO HOME OR SELFCARE Core Measure Documentation - Palliative Care Palliative Care/ Comfort Measures: Not Applicable Exam - Constitutional Vitals: Temp Pulse Resp BP Pulse Ox 98.9 F 68 18 139/85 100 08/16/17 15:20 08/16/17 18:30 08/16/17 15:20 08/16/17 18:30 08/16/17 12:21 Plan Follow up with: NA TANNER MD [Staff Physician] - 7 Days PRIMARY CARE, [Primary Care Provider] - 3-5 Days Forms: Warfarin Discharge Instruction Prescriptions: Diltiazem [Cardizem] 60 mg PO TID 30 Days tablet Metoprolol [Lopressor TAB] 50 mg PO BID 30 Days tablet
[2017-08-16] MEDS: ZESTRIL PO SCH (19:37)
[2017-08-16] MEDS: SENSIPAR PO SCH (19:37)
[2017-08-16] MEDS: Renal Caps PO SCH (19:37)
[2017-08-16] MEDS: COUMADIN PO SCH (19:41)
[2017-08-17] MEDS: DILAUDID IV PRN ×2 (01:18→07:17)
[2017-08-17] MEDS: NEURONTIN PO SCH (05:35)
[2017-08-17 06:05] LABS: INR 1.76 (0.87-1.13)
[2017-08-17 08:11] VITALS: BP 128/68
[2017-08-17] MEDS ORDERED: COUMADIN PO SCH (17:00)
--- NOTE | 2017-08-17 20:03 | Event Note ---
Date: 08/17/17 Patient was initially discharged yesterday but due to technical and social reasons , patient could not leave the hospital This morning patient is feeling better , no complaints , vital signs are stable , medical records reviewed Patient is clinically and hemodynamically stable for discharge home . Please refer to detailed discharge summary done yesterday
== END 2017-08-17 08:25 | disposition home or self-care (01) | DRG 308 ==
LOC: ED 05:20 → 3A 09:05
PROVIDERS: ADMIT Internal Medicine; ATTEND Internal Medicine
PROC: 5A1D70Z Performance of Urinary Filtration, Intermittent, Less than 6 Hours Per Day (ICD-10-PCS; principal; 2017-08-14)
PROC: 5A1D70Z Performance of Urinary Filtration, Intermittent, Less than 6 Hours Per Day (ICD-10-PCS; 2017-08-16)
DX: I48.0 Paroxysmal atrial fibrillation (principal); N18.6 End stage renal disease; I12.0 Hypertensive chronic kidney disease with stage 5 chronic kidney disease or end stage renal disease; I16.0 Hypertensive urgency; Z99.2 Dependence on renal dialysis; D63.1 Anemia in chronic kidney disease; Z88.5 Allergy status to narcotic agent; E11.22 Type 2 diabetes mellitus with diabetic chronic kidney disease; Z87.891 Personal history of nicotine dependence; Z86.73 Personal history of transient ischemic attack (TIA), and cerebral infarction without residual deficits; Z83.3 Family history of diabetes mellitus; Z82.49 Family history of ischemic heart disease and other diseases of the circulatory system
CPT/HCPCS: 36415; 71010; 80053; 80061; 82550; 82553; 82962; 84484; 85025; 85610; 85730; 93005; 93010; 99285; J1170; J1815; J2405

== ENCOUNTER 2017-09-04 10:26 | Emergency (ER) | payer MEDICARE | END 2017-09-04 10:32 | disposition left against medical advice (07) | LOC: ED 10:26 | DX: R06.02 Shortness of breath (principal); Z53.21 Procedure and treatment not carried out due to patient leaving prior to being seen by health care provider ==

== ENCOUNTER 2017-10-24 11:14 | Outpatient (CLI) | payer MEDICARE ==
--- NOTE | 2017-10-26 09:35 | Mammography Report ---
BILATERAL DIGITAL SCREENING MAMMOGRAM with CAD: 10/24/17 11:14:00 CLINICAL: Routine screening. COMPARISON:07/04/16 FINDINGS: The breasts are mostly fatty but both breasts have increased in density compared to the last exam. Moderate bilateral skin thickening which is slightly greater compared to last exam. No mass, architectural distortion or suspicious calcifications. IMPRESSION: No mammographic evidence of malignancy. Bilateral increased breast density which is likely related to a systemic cause such as heart failure or renal failure. BI-RADS CATEGORY: 1 - - Negative RECOMMENDATION: Routine mammographic screening in one year. COMMENT: Patient follow-up letters are generated by our [employer] application.
== END 2017-10-24 11:15 | disposition home or self-care (01) ==
LOC: SPVWC 11:14
PROVIDERS: ATTEND Family Medicine
DX: Z12.31 Encounter for screening mammogram for malignant neoplasm of breast (principal)
CPT/HCPCS: 77067

== ENCOUNTER 2018-12-20 10:53 | Outpatient (CLI) | payer MEDICARE ==
--- NOTE | 2018-12-20 11:40 | Mammography Report ---
BILATERAL MAMMOGRAM: FINDINGS: There are scattered fibroglandular densities (approximately 25%-50% glandular). No mass, distortion, suspicious calcification, or skin change is seen. No interval change compared to prior exam of October 2017. CAD was utilized. IMPRESSION: Negative mammogram. There is no mammographic evidence of malignancy. RECOMMENDATION: Follow-up per ACS guidelines. BI-RADS CATEGORY: 1 = Negative ACR BI-RADS MAMMOGRAPHIC CODES: 0 = Needs additional imaging evaluation; 1 = Negative; 2 = Benign; 3 = Probably benign; 4 = Suspicious; 5 = Malignant; 6 = Known biopsy-proven malignancy COMMENT: 1. Dense breast tissue, i.e., adenosis, fibrocystic changes, etc., may obscure an underlying neoplasm. 2. Approximately 10% of cancers are not detected with mammography. 3. A negative mammography report should not delay biopsy if a clinically suspicious mass is present. COMMENT: Patient follow-up letters are generated in [employer].
== END 2018-12-20 10:54 | disposition home or self-care (01) ==
LOC: SPVWC 10:53
PROVIDERS: ATTEND Internal Medicine Gastroenterology
DX: Z12.31 Encounter for screening mammogram for malignant neoplasm of breast (principal); I13.2 Hypertensive heart and chronic kidney disease with heart failure and with stage 5 chronic kidney disease, or end stage renal disease; I50.9 Heart failure, unspecified; E11.22 Type 2 diabetes mellitus with diabetic chronic kidney disease; N18.6 End stage renal disease
CPT/HCPCS: 77067

== ENCOUNTER 2019-06-18 09:45 | Emergency (ER) | payer MEDICARE ==
[2019-06-18 10:40] LABS: Bilirubin,Urine NEG (Negative); Blood,Urine NEG (Negative); Color,Urine Yellow (Yellow); Mucus,Urine FEW /HPF; Urobilinogen,Urine < 2.0 mg/dL (<2.0)
[2019-06-18 10:43] LABS: Hematocrit 45.2 % (30.3-42.9); Hemoglobin 14.4 gm/dl (10.1-14.3); Mean Corpuscular HGB Conc 32 % (30-34); Mean Corpuscular Volume 91 fl (79-97); Platelet Count 140 K/mm3 (140-440); Red Blood Count 4.99 M/mm3 (3.65-5.03); Red Cell Distribution Width 19.1 % (13.2-15.2)
[2019-06-18 10:53] LABS: Partial Thromboplastin Time 32.3 Sec. (24.2-36.6)
[2019-06-18 10:54] LABS: INR 1.97 (0.87-1.13)
[2019-06-18 11:02] LABS: Albumin 3.9 g/dL (3.9-5); Calcium 10.2 mg/dL (8.4-10.2)
--- NOTE | 2019-06-18 11:05 | XRay Report ---
CHEST 1 VIEW INDICATION: castro, leg edema. COMPARISON: 08/14/2017 FINDINGS: Support devices: None. Heart: Cardiomegaly with an increased heart size since the last exam. Pulmonary Vasculature: Indistinct pulmonary vessels and redistribution of pulmonary blood flow to the upper lobes. Lungs/Pleura: Mild bilateral perihilar reticular interstitial opacities. No pleural effusion. Additional findings: None. IMPRESSION: CHF with mild interstitial pulmonary edema. Signer Name: Scar Florez MD Signed: 06/18/2019 11:01 AM Workstation Name: [id number]
[2019-06-18] MEDS ORDERED: oxyCODONE /ACETAMINOPHEN 5-325MG TAB PO ONE (11:15)
[2019-06-18] MEDS ORDERED: traMADol 50 MG TAB PO ONE (11:19)
--- NOTE | 2019-06-18 11:23 | Emergency Department Report ---
ED Neuro Deficit HPI - General Chief Complaint: Neuro Symptoms/Deficit Stated Complaint: STROKE LIKE SX Time Seen by Provider: 06/18/19 09:57 Source: family (daughter inteviwed at 11:40 am after arrival to ed), EMS, old records reviewed (pt seen here prior to kidney transplant) Mode of arrival: Stretcher Limitations: No Limitations - History of Present Illness Initial Comments: 68-year-old female with a past medical history of CVA with no residual deficits and kidney transplant in January presents to the hospital initially for reports of slurred speech since Monday. Patient states the year is "" and [facility] Other than that she is not the best historian. She complains of mid abdominal pain 2 weeks without nausea, vomiting, or fever. Patient states that he was told by her and daughter that her speech is slurred since Monday but patient states she feels her speech is normal. I interviewed daughter at approximately 11:40 AM. She states that patient has had a steady decline since transplant in January. This more confused, generalized weakness, having mood swings, and visual hallucinations. She called the care team and was told to take the patient to hospital. She was brought here by EMS instead due to suspicion of stroke. - Related Data Home Medications: Home Medications Medication Instructions Recorded Confirmed Last Taken traZODone 50 mg PO PRN PRN 08/14/17 06/18/19 Unknown Apixaban [Eliquis] 5 mg PO BID 06/18/19 06/18/19 Unknown Atovaquone [Mepron] 10 ml QDAY 06/18/19 06/18/19 Unknown Furosemide [Lasix TAB] 40 mg PO QDAY 06/18/19 06/18/19 Unknown Humalog 100 UNITS/ML Kwikpen units SUB-Q PRN PRN 06/18/19 Unknown Metoprolol Xl [Metoprolol 25 mg PO QDAY 06/18/19 06/18/19 Unknown SUCCINATE ER TAB] Metoprolol Xl [Metoprolol 100 mg PO QDAY 06/18/19 06/18/19 Unknown SUCCINATE ER TAB] Mycophenolate [Cellcept] 750 mg PO BID 06/18/19 06/18/19 Unknown Pantoprazole [Protonix] 40 mg PO QDAY 06/18/19 06/18/19 Unknown Tacrolimus [Envarsus Xr] 2 mg PO QDAY 06/18/19 06/18/19 Unknown predniSONE [Deltasone] 5 mg PO QDAY 06/18/19 06/18/19 Unknown Allergies/Adverse Reactions: Allergies Allergy/AdvReac Type Severity Reaction Status Date / Time baclofen Allergy Intermediate Unknown Verified 06/18/19 11:48 morphine Allergy Unknown Verified 08/14/17 06:42 ED Review of Systems ROS: Stated complaint: STROKE LIKE SX Other details as noted in HPI Comment: All other systems reviewed and negative ED Past Medical Hx - Past Medical History Previous Medical History?: Yes Hx Hypertension: Yes Hx Congestive Heart Failure: Yes Hx Diabetes: Yes Hx Renal Disease: Yes (Kidney transplant 2018) Hx Arthritis: Yes Hx HIV: No Additional medical history: Kidney transplant March 2019 - Surgical History Past Surgical History?: Yes Additional Surgical History: Kidney Transplant March 2019. LUE fistula, C/Sx2 - Social History Smoking Status: Never Smoker - Medications Home Medications: Home Medications Medication Instructions Recorded Confirmed Last Taken Type traZODone 50 mg PO PRN PRN 08/14/17 06/18/19 Unknown History Apixaban [Eliquis] 5 mg PO BID 06/18/19 06/18/19 Unknown History Atovaquone [Mepron] 10 ml QDAY 06/18/19 06/18/19 Unknown History Furosemide [Lasix TAB] 40 mg PO QDAY 06/18/19 06/18/19 Unknown History Humalog 100 UNITS/ML Kwikpen units SUB-Q PRN PRN 06/18/19 Unknown History Metoprolol Xl [Metoprolol 25 mg PO QDAY 06/18/19 06/18/19 Unknown History SUCCINATE ER TAB] Metoprolol Xl [Metoprolol 100 mg PO QDAY 06/18/19 06/18/19 Unknown History SUCCINATE ER TAB] Mycophenolate [Cellcept] 750 mg PO BID 06/18/19 06/18/19 Unknown History Pantoprazole [Protonix] 40 mg PO QDAY 06/18/19 06/18/19 Unknown History Tacrolimus [Envarsus Xr] 2 mg PO QDAY 06/18/19 06/18/19 Unknown History predniSONE [Deltasone] 5 mg PO QDAY 06/18/19 06/18/19 Unknown History ED Neuro Physical Exam - General Limitations: No Limitations Suspected Stroke: No - NIHSS Assessment Interval: Baseline 1a. Level of Consciousness: alert/keenly responsive 1b. LOC Questions: answers both correctly 1c. LOC Commands: performs tasks correctly 2. Best Gaze: normal 3. Visual: no visual loss 4. Facial Palsy: normal symmetrical movement 5b. Motor Arm Right: no drift 5a. Motor Arm Left: no drift 6a. Motor Leg Left: no drift 6b. Motor Leg Right: no drift 7. Limb Ataxia: absent 8. Sensory: normal 9. Best Language: no aphasia 10. Dysarthria: normal 11. Extinction/Inattention: no abnormality Total Score: 0 Stroke Severity: No Stroke Symptoms - Other Other exam information: Gen.: No acute distress Head: Atraumatic Eyes: Normal appearance ENT: Moist mucous membranes Neck: Normal appearance, no posterior midline tenderness, no meningismus Chest: Clear to auscultation bilaterally Cardiovascular: Regular rate and rhythm Abdomen: Right lower quadrant abdominal scar suprapubic scar noted, soft, nonte nder, no rebound or guarding, normal bowel sounds Back: Normal appearance, nontender Extremity: Full range of motion, normal appearance, left forearm av fistula Neuro: Alert oriented 3, clear speech, no focal motor or sensory deficit him a [id number] function intact Psychiatric: Appropriate Skin: No rash ED Course Vital Signs 06/18/19 06/18/19 06/18/19 09:54 09:58 10:00 Temperature 97.9 F Pulse Rate 113 H 117 H 108 H Respiratory 13 19 17 Rate Blood Pressure 116/87 123/99 Blood Pressure [Right] O2 Sat by Pulse 100 Oximetry 06/18/19 06/18/19 06/18/19 10:02 10:04 11:38 Temperature 97.7 F Pulse Rate 117 H 95 H Respiratory 19 19 14 Rate Blood Pressure Blood Pressure 116/87 113/66 [Right] O2 Sat by Pulse 100 100 100 Oximetry 06/18/19 06/18/19 06/18/19 12:00 12:32 13:00 Temperature Pulse Rate 111 H 109 H 114 H Respiratory 27 H 23 Rate Blood Pressure 119/78 117/79 116/86 Blood Pressure [Right] O2 Sat by Pulse 99 100 Oximetry 06/18/19 06/18/19 13:37 14:00 Temperature Pulse Rate 110 H 116 H Respiratory 13 17 Rate Blood Pressure 118/89 Blood Pressure 116/86 [Right] O2 Sat by Pulse 98 98 Oximetry - Reevaluation(s) Reevaluation #1: 06/18/19 11:23 trop added due to t wave inv on ekg 06/18/19 11:45 Medication list available at this time. Patient is on eloquent as well as metoprolol in addition to other medications. She did not have any medications this morning. She has 2 different doses of metoprolol XL listed 25 mg and 100 mg. 25 mg by mouth dose provided in ED - Consultations Consultation #1: 06/18/19 12:04 case d/w Dr briones conservation coordinator affiliated with pt's primary conservation coordinator, request transfer to [facility] for admission 06/18/19 13:07 case d/w With [facility] and pt accepted for transfer. - Lab Data Result diagrams: 06/18/19 10:17 06/18/19 10:17 Lab Results 06/18/19 06/18/19 06/18/19 Range/Units 10:17 10:17 10:17 WBC 3.2 L (4.5-11.0) K/mm3 RBC 4.99 (3.65-5.03) M/mm3 Hgb 14.4 H (10.1-14.3) gm/dl Hct 45.2 H (30.3-42.9) % MCV 91 (79-97) fl MCH 29 (28-32) pg MCHC 32 (30-34) % RDW 19.1 H (13.2-15.2) % Plt Count 140 (140-440) K/mm3 Mccreary % (Auto) Cota Add Manual Diff Complete Total Counted 100 Seg Neuts % (Manual) 74.0 H (40.0-70.0) % Band Neutrophils % 3.0 % Lymphocytes % (Manual) 13.0 L (13.4-35.0) % Reactive Lymphs % (Man) 0 % Monocytes % (Manual) 10.0 H (0.0-7.3) % Eosinophils % (Manual) 0 (0.0-4.3) % Basophils % (Manual) 0 (0.0-1.8) % Metamyelocytes % 0 % Myelocytes % 0 % Promyelocytes % 0 % Blast Cells % 0 % Nucleated RBC % Not Reportable Seg Neutrophils # Man 2.4 (1.8-7.7) K/mm3 Band Neutrophils # 0.1 K/mm3 Lymphocytes # (Manual) 0.4 L (1.2-5.4) K/mm3 Abs React Lymphs (Man) 0.0 K/mm3 Monocytes # (Manual) 0.3 (0.0-0.8) K/mm3 Eosinophils # (Manual) 0.0 (0.0-0.4) K/mm3 Basophils # (Manual) 0.0 (0.0-0.1) K/mm3 Metamyelocytes # 0.0 K/mm3 Myelocytes # 0.0 K/mm3 Promyelocytes # 0.0 K/mm3 Blast Cells # 0.0 K/mm3 WBC Morphology Not Reportable Hypersegmented Neuts Not Reportable Hyposegmented Neuts Not Reportable Hypogranular Neuts Not Reportable Smudge Cells Not Reportable Toxic Granulation Not Reportable Toxic Vacuolation Not Reportable Dohle Bodies Not Reportable Pelger-Huet Anomaly Not Reportable Flavia Rods Not Reportable Platelet Estimate Consistent w auto Clumped Platelets Not Reportable Plt Clumps, EDTA Not Reportable Large Platelets Not Reportable Giant Platelets Not Reportable Platelet Satelliting Not Reportable Plt Morphology Comment Not Reportable RBC Morphology Not Reportable Dimorphic RBCs Not Reportable Polychromasia Not Reportable Hypochromasia Not Reportable Poikilocytosis Not Reportable Anisocytosis 1+ Microcytosis Few Macrocytosis Not Reportable Spherocytes Not Reportable Pappenheimer Bodies Not Reportable Sickle Cells Not Reportable Target Cells Not Reportable Tear Drop Cells Not Reportable Ovalocytes Not Reportable Helmet Cells Not Reportable [place] Bodies Not Reportable Barnard Rings Not Reportable Dick Cells Not Reportable Bite Cells Not Reportable Crenated Cell Not Reportable Elliptocytes Not Reportable Acanthocytes (Spur) Not Reportable Rouleaux Not Reportable Hemoglobin C Crystals Not Reportable Schistocytes Not Reportable Malaria parasites Not Reportable Yevgeniy Bodies Not Reportable Hem Pathologist Commnt No PT 22.0 H (12.2-14.9) Sec. INR 1.97 H (0.87-1.13) APTT 32.3 (24.2-36.6) Sec. Sodium 138 (137-145) mmol/L Potassium 4.3 (3.6-5.0) mmol/L Chloride 96.4 L (98-107) mmol/L Carbon Dioxide 25 (22-30) mmol/L Anion Gap 21 mmol/L BUN 25 H (7-17) mg/dL Creatinine 1.5 H (0.7-1.2) mg/dL Estimated GFR 42 ml/min BUN/Creatinine Ratio 17 % Glucose 246 H (65-100) mg/dL Calcium 10.2 (8.4-10.2) mg/dL Total Bilirubin 1.90 H (0.1-1.2) mg/dL AST 55 H (5-40) units/L ALT 33 (7-56) units/L Alkaline Phosphatase 117 (35-129) units/L Troponin T (0.00-0.029) ng/mL NT-Pro-B Natriuret Pep 5853 H (0-900) pg/mL Total Protein 6.5 (6.3-8.2) g/dL Albumin 3.9 (3.9-5) g/dL Albumin/Globulin Ratio 1.5 % Urine Color (Yellow) Urine Turbidity (Clear) Urine pH (5.0-7.0) Ur Specific [place] (1.003-1.030) Urine Protein (Negative) mg/dL Urine Glucose (UA) (Negative) mg/dL Urine Ketones (Negative) mg/dL Urine Blood (Negative) Urine Nitrite (Negative) Urine Bilirubin (Negative) Urine Urobilinogen (<2.0) mg/dL Ur Leukocyte Esterase (Negative) Urine WBC (Auto) (0.0-6.0) /HPF Urine RBC (Auto) (0.0-6.0) /HPF U Epithel Cells (Auto) (0-13.0) /HPF Urine Mucus /HPF Urine Opiates Screen Urine Methadone Screen Ur Barbiturates Screen Ur Phencyclidine Scrn Ur Amphetamines Screen U Benzodiazepines Scrn Urine Cocaine Screen U Marijuana (THC) Screen Drugs of Abuse Note 06/18/19 06/18/19 06/18/19 Range/Units 10:22 10:22 Unknown WBC (4.5-11.0) K/mm3 RBC (3.65-5.03) M/mm3 Hgb (10.1-14.3) gm/dl Hct (30.3-42.9) % MCV (79-97) fl MCH (28-32) pg MCHC (30-34) % RDW (13.2-15.2) % Plt Count (140-440) K/mm3 Mccreary % (Auto) Add Manual Diff Total Counted Seg Neuts % (Manual) (40.0-70.0) % Band Neutrophils % % Lymphocytes % (Manual) (13.4-35.0) % Reactive Lymphs % (Man) % Monocytes % (Manual) (0.0-7.3) % Eosinophils % (Manual) (0.0-4.3) % Basophils % (Manual) (0.0-1.8) % Metamyelocytes % % Myelocytes % % Promyelocytes % % Blast Cells % % Nucleated RBC % Seg Neutrophils # Man (1.8-7.7) K/mm3 Band Neutrophils # K/mm3 Lymphocytes # (Manual) (1.2-5.4) K/mm3 Abs React Lymphs (Man) K/mm3 Monocytes # (Manual) (0.0-0.8) K/mm3 Eosinophils # (Manual) (0.0-0.4) K/mm3 Basophils # (Manual) (0.0-0.1) K/mm3 Metamyelocytes # K/mm3 Myelocytes # K/mm3 Promyelocytes # K/mm3 Blast Cells # K/mm3 WBC Morphology Hypersegmented Neuts Hyposegmented Neuts Hypogranular Neuts Smudge Cells Toxic Granulation Toxic Vacuolation Dohle Bodies Pelger-Huet Anomaly Flavia Rods Platelet Estimate Clumped Platelets Plt Clumps, EDTA Large Platelets Giant Platelets Platelet Satelliting Plt Morphology Comment RBC Morphology Dimorphic RBCs Polychromasia Hypochromasia Poikilocytosis Anisocytosis Microcytosis Macrocytosis Spherocytes Pappenheimer Bodies Sickle Cells Target Cells Tear Drop Cells Ovalocytes Helmet Cells [place] Bodies Barnard Rings [place] Cells Bite Cells Crenated Cell Elliptocytes Acanthocytes (Spur) Rouleaux Hemoglobin C Crystals Schistocytes Malaria parasites Yevgeniy Bodies Hem Pathologist Commnt PT (12.2-14.9) Sec. INR (0.87-1.13) APTT (24.2-36.6) Sec. Sodium (137-145) mmol/L Potassium (3.6-5.0) mmol/L Chloride (98-107) mmol/L Carbon Dioxide (22-30) mmol/L Anion Gap mmol/L BUN (7-17) mg/dL Creatinine (0.7-1.2) mg/dL Estimated GFR ml/min BUN/Creatinine Ratio % Glucose (65-100) mg/dL Calcium (8.4-10.2) mg/dL Total Bilirubin (0.1-1.2) mg/dL AST (5-40) units/L ALT (7-56) units/L Alkaline Phosphatase (35-129) units/L Troponin T < 0.010 (0.00-0.029) ng/mL NT-Pro-B Natriuret Pep (0-900) pg/mL Total Protein (6.3-8.2) g/dL Albumin (3.9-5) g/dL Albumin/Globulin Ratio % Urine Color Yellow (Yellow) Urine Turbidity Clear (Clear) Urine pH 6.0 (5.0-7.0) Ur Specific [place] 1.011 (1.003-1.030) Urine Protein 100 mg/dl (Negative) mg/dL Urine Glucose (UA) Neg (Negative) mg/dL Urine Ketones Neg (Negative) mg/dL Urine Blood Neg (Negative) Urine Nitrite Neg (Negative) Urine Bilirubin Neg (Negative) Urine Urobilinogen < 2.0 (<2.0) mg/dL Ur Leukocyte Esterase Neg (Negative) Urine WBC (Auto) 1.0 (0.0-6.0) /HPF Urine RBC (Auto) 2.0 (0.0-6.0) /HPF U Epithel Cells (Auto) 3.0 (0-13.0) /HPF Urine Mucus Few /HPF Urine Opiates Screen Presumptive negative Urine Methadone Screen Presumptive negative Ur Barbiturates Screen Presumptive negative Ur Phencyclidine Scrn Presumptive negative Ur Amphetamines Screen Presumptive negative U Benzodiazepines Scrn Presumptive negative Urine Cocaine Screen Presumptive negative U Marijuana (THC) Screen Presumptive negative Drugs of Abuse Note Disclamer - EKG Data -: EKG Interpreted by Me (afib) EKG shows normal: ST-T waves (lat t wave inv) Rate: tachycardia (107) - Radiology Data Radiology results: report reviewed CHEST 1 VIEW INDICATION: castro, leg edema. COMPARISON: 08/14/2017 FINDINGS: Support devices: None. Heart: Cardiomegaly with an increased heart size since the last exam. Pulmonary Vasculature: Indistinct pulmonary vessels and redistribution of pulmonary blood flow to the upper lobes. Lungs/Pleura: Mild bilateral perihilar reticular interstitial opacities. No pleural effusion. Additional findings: None. IMPRESSION: CHF with mild interstitial pulmonary edema. CT head without contrast Clinical history: Headache, slurred speech FINDINGS: No previous exams are available for comparison. There is moderate cerebral white matter disease most consistent with microvascular angiopathy, greater on the left.. Furthermore, there is is an old infarct involving the left thalamus. There is mild cerebral atrophy with associated prominence of the ventricular system. There is no clear CT evidence of acute intracranial hemorrhage or significant mass effect. The visualized paranasal sinuses are clear. All CT scans at this location are performed using the CT dose reduction for [employer] by means of automated exposure control. 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 There is no CT ends of acute intracranial hemorrhage. - Medical Decision Making Case was discussed with Dr. Briones conservation coordinator with [facility]. They are familiar with the patient and she has had multiple recent admissions. Given that she is a transplant patient a requests transfer to the hospital for treatment. - Differential Diagnosis dementia, CVA, encephalopathy, ICH, medication reaction Critical Care Time: No Critical care attestation.: If time is entered above; I have spent that time in minutes in the direct care of this critically ill patient, excluding procedure time. ED Disposition Clinical Impression: Fluid overload, CHF exacerbation, Atrial fibrillation with RVR, Psychosis, Decreased activity, History of kidney transplant Disposition: [id number]/TX-[id number] ANOTHER TYPE HLTHCARE Is pt being admited?: No Condition: Stable Time of Disposition: 13:25 (accepted by Dr. Briones for admission to [facility])
[2019-06-18 11:33] LABS: Anisocytosis 1+; Band Neutrophils # (Manual) 0.1 K/mm3; Basophils % (Manual) 0 % (0.0-1.8); Eosinophils % (Manual) 0 % (0.0-4.3); Platelet Estimate Consistent w Auto; Total Cells Counted 100
--- NOTE | 2019-06-18 11:41 | Cat Scan Report ---
CT head without contrast Clinical history: Headache, slurred speech FINDINGS: No previous exams are available for comparison. There is moderate cerebral white matter dis ease most consistent with microvascular angiopathy, greater on the left.. Furthermore, there is is an old infarct involving the left thalamus. There is mild cerebral atrophy with associated prominence o f the ventricular system. There is no clear CT evidence of acute intracranial hemorrhage or significa nt mass effect. The visualized paranasal sinuses are clear. All CT scans at this location are performed using the CT dose reduction for ALARA by means of automated exposure control. 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 There is no CT ends of acute intracranial hemorrhage. Signer Name: Carlito Goldsmith MD Signed: 06/18/2019 11:37 AM Workstation Name: [id number]
[2019-06-18 12:13] LABS: Amphetamine Screen,Urine PRESUMPTIVE NEGATIVE; Benzodiazepines Screen,Urine PRESUMPTIVE NEGATIVE; Cannabinoid Screen,Urine PRESUMPTIVE NEGATIVE; Cocaine Screen,Urine PRESUMPTIVE NEGATIVE; Methadone Screen,Urine PRESUMPTIVE NEGATIVE; Opiate Screen,Urine PRESUMPTIVE NEGATIVE
[2019-06-18] MEDS ORDERED: METOPROLOL SUCCINATE XL 25 MG TAB PO ONE (12:41)
[2019-06-18 14:03] VITALS: BP 118/89
== END 2019-06-18 15:30 | disposition other institution (70) ==
LOC: ED 09:45
DX: E87.70 Fluid overload, unspecified (principal); I11.0 Hypertensive heart disease with heart failure; I50.9 Heart failure, unspecified; I48.91 Unspecified atrial fibrillation; F29 Unspecified psychosis not due to a substance or known physiological condition; R68.89 Other general symptoms and signs; E11.9 Type 2 diabetes mellitus without complications; M19.90 Unspecified osteoarthritis, unspecified site; Z94.0 Kidney transplant status; Z79.899 Other long term (current) drug therapy; Z88.8 Allergy status to other drugs, medicaments and biological substances; Z88.6 Allergy status to analgesic agent
CPT/HCPCS: 36415; 70450; 71045; 80053; 80307; 81001; 83880; 84484; 85007; 85025; 85610; 85730; 93005; 93010